=== PATIENT | female | born 1935 | race Caucasian/White ===

== ENCOUNTER 2019-04-19 16:07 | Inpatient (IN) | payer MEDICARE, OTHER, SELFPAY ==
[2019-04-19 16:38] VITALS: BP 118/66; PULSE 64; RESP 16; TEMP 36.6; O2SAT 99; BMI 18.1
[2019-04-19 17:09] LABS: Add Manual Diff / Slide Review NO; Basophils Absolute Auto 100 /uL (0-100); Basophils Percent Auto 0.4 % (0-2); Eosinophils Absolute Auto 300 /uL (0-450); Eosinophils Percent Auto 1.5 % (2-4); Hematocrit 30.9 % (36-46); Lymphocytes Absolute Auto 600 /uL (1100-4500); Lymphocytes Percent Auto 3.1 % (25-40); Mean Corpuscular HGB Conc 32.2 % (30-36); Mean Corpuscular Hemoglobin 28.5 PG (26-34); Mean Corpuscular Volume 88.5 fL (80-100); Monocytes Absolute Auto 1000 /uL (0-900); Neutrophils Absolute Auto 17300 /uL (1500-7000); Platelet Count 387 X10^3/uL (150-400); Red Blood Cell Count 3.49 X10^6/uL (4.0-5.2); Red Cell Distribution Width 14.2 % (11.6-14.8); White Blood Cell Count 19.3 X10^3/uL (4.5-11.0)
[2019-04-19 17:20] LABS: INR 1.1 (0.9-1.3)
[2019-04-19 17:23] LABS: PTT Partial Thromboplastin Tim 28 SECONDS (26.4-36.2)
[2019-04-19 17:26] LABS: Alanine Aminotransferase 149 IU/L (9-52); Albumin Globulin Ratio 0.8 (1.0-2.8); Alkaline Phosphatase 208 U/L (38-126); Aspartate Aminotransferase 131 IU/L (14-36); BUN Creatinine Ratio 21.3 (6-22); Bilirubin Total 0.4 mg/dL (0.2-1.3); Calcium 12.1 mg/dL (8.4-10.2); Carbon Dioxide 23 mmol/L (22-32); Chloride 95 mmol/L (98-107); Estimated Glomerular Filt Rate 7.9 mL/min (>60); Globulin 3.8 g/dL (1.7-4.1); Glucose 93 mg/dL (80-110); HEMOLYSIS < 15 (0-50); Lipase 587 U/L (23-300); Sodium 129 mmol/L (137-145); Total Protein 6.8 g/dL (6.3-8.2)
[2019-04-19 17:41] LABS: Blood Urea Nitrogen 111 mg/dL (7-17)
--- NOTE | 2019-04-19 17:42 | ED.RECABL ---
HPI - Recheck/Abnormal Lab/Rx General Chief Complaint: Recheck/Abnormal Lab/Rx Stated Complaint: confusion Time Seen by Provider: 04/19/19 17:42 Source: patient Mode of arrival: ambulatory Limitations: no limitations Related Data Allergies Allergy/AdvReac Type Severity Reaction Status Date / Time No Known Drug Allergies Allergy Verified 04/19/19 16:45 PFSH Social History Smoking Status: Former smoker Social History Smoking Status: Former smoker Exam Initial Vital Signs Initial Vital Signs: Vital Signs Temperature 97.8 F 04/19/19 16:38 Pulse Rate 64 04/19/19 16:38 Respiratory Rate 16 04/19/19 16:38 Blood Pressure 118/66 04/19/19 16:38 Pulse Oximetry 99 04/19/19 16:38 Course Orders Ordered: ED Orders 04/19/19 16:46 EKG-12 Lead Stat 04/19/19 16:55 Complete Blood Count AUTO DIFF Stat Comprehensive Metabolic Panel Stat Lipase Stat Partial Thromboplastin Time Stat Prothrombin Time INR Stat 04/19/19 17:41 EKG-12 Lead Stat Vital Signs Vital signs: Vital Signs - 8 hr 04/19/19 16:38 Temperature 97.8 F Pulse Rate 64 Respiratory Rate 16 Blood Pressure 118/66 Pulse Oximetry 99 MDM - Recheck/Abnormal Lab/Rx Lab Data Result diagrams: 04/19/19 16:55 04/19/19 16:55 Labs: Lab Results 04/19/19 04/19/19 04/19/19 Range/Units 16:55 16:55 16:55 WBC 19.3 H (4.5-11.0) X10^3/uL RBC 3.49 L (4.0-5.2) X10^6/uL Hgb 10.0 L (12.0-16.0) g/dL Hct 30.9 L (36-46) % MCV 88.5 (80-100) fL MCH 28.5 (26-34) PG MCHC 32.2 (30-36) % RDW 14.2 (11.6-14.8) % Plt Count 387 (150-400) X10^3/uL Neut % (Auto) 90.0 H (50-75) % Lymph % (Auto) 3.1 L (25-40) % [place] % (Auto) 5.0 (3-14) % Eos % (Auto) 1.5 L (2-4) % Baso % (Auto) 0.4 (0-2) % Neut # (Auto) 02000 H (5867-6810) /uL Lymph # (Auto) 600 L (3096-8252) /uL [place] # (Auto) 1000 H (0-900) /uL Eos # (Auto) 300 (0-450) /uL Baso # (Auto) 100 (0-100) /uL PT 13.0 H (10.1-12.7) SECONDS INR 1.1 (0.9-1.3) APTT 28 (26.4-36.2) SECONDS Sodium 129 L (137-145) mmol/L Potassium 5.0 (3.4-5.1) mmol/L Chloride 95 L (98-107) mmol/L Carbon Dioxide 23 (22-32) mmol/L BUN 111 H* (7-17) mg/dL Creatinine 5.20 H (0.52-1.04) mg/dL Estimated GFR 7.9 L (>60) mL/min BUN/Creatinine Ratio 21.3 (6-22) Glucose 93 (80-110) mg/dL Calcium 12.1 H (8.4-10.2) mg/dL Total Bilirubin 0.4 (0.2-1.3) mg/dL AST 131 H (14-36) IU/L ALT 149 H (9-52) IU/L Alkaline Phosphatase 208 H (38-126) U/L Total Protein 6.8 (6.3-8.2) g/dL Albumin 3.0 L (3.5-5.0) g/dL Globulin 3.8 (1.7-4.1) g/dL Albumin/Globulin Ratio 0.8 L (1.0-2.8) Lipase 587 H (23-300) U/L
--- NOTE | 2019-04-19 17:53 | DI.RAD.S_ITS ---
PROCEDURE: XR CHEST 1V INDICATIONS: weakness TECHNIQUE: One view of the chest was acquired. COMPARISON: None. FINDINGS: Surgical changes and devices: None. Lungs and pleura: There is trace blunting of the left costophrenic angle. Mediastinum: Mediastinal contours appear normal. Heart size is normal. Bones and chest wall: No suspicious bony lesions. Overlying soft tissues appear unremarkable. IMPRESSION: Trace left costophrenic angle blunting possibly related to scarring versus trace effusion. Dictated by: Justine Cervantes M.D. on 04/19/2019 at 18:12 Approved by: Justine Cervantes M.D. on 04/19/2019 at 18:13
--- NOTE | 2019-04-19 18:53 | ED.RECABL ---
HPI - Recheck/Abnormal Lab/Rx General Chief Complaint: Recheck/Abnormal Lab/Rx Stated Complaint: confusion Time Seen by Provider: 04/19/19 17:42 Source: patient and family (son) Limitations: altered mental status (memory issues, can answer some questions.) History of Present Illness HPI narrative: This is an 83-year-old female who comes to the emergency department for concern for renal dysfunction. Patient was living in [facility]. Her son states she was placed in a care facility because she had memory issues and a urine infection and was unable to care for herself. He states when he saw her in February she was normal and had normal memory. This was about 2 weeks ago he went to get her and bring her back when it was found that she was not safe on her own. They recently placed her in a fpc here locally about a week ago. She had found have another urine infection was placed on a 2nd round of antibiotics. He states she has not been eating or drinking much she has had a weight loss from 120 lb to about 99 over the past several weeks to months. She has a little bit of improvement in her memory she remembers that he is her son but still has a lot of gaps. He states she will occasionally have an episode of vomiting but not regularly. She has had normal bowel movements, she has been having urine output. She herself is unsure about what sort of urine output or how much she is having. She denies any shortness of breath or chest pain or pressure. She denies any pain elsewhere. Son states she has not been complaining of any. Related Data Home Medications Medication Instructions Recorded Confirmed ascorbic acid (vitamin C) [Vitamin 1,000 mg PO DAILY 04/19/19 04/19/19 C] calcium carbonate-vitamin D3 1 tab PO BID 04/19/19 04/19/19 [Calcium with Vitamin D] cholecalciferol (vitamin D3) 2,000 unit PO DAILY 04/19/19 04/19/19 [Vitamin D3] coenzyme Q10 [Co Q-10] 200 mg PO BID 04/19/19 04/19/19 flaxseed oil 1,000 mg PO WEEKLY 04/19/19 04/19/19 loperamide [Anti-Diarrheal 2 mg PO BEDTIME 04/19/19 04/19/19 (loperamide)] melatonin 3 mg PO BEDTIME PRN 04/19/19 04/19/19 metoprolol succinate 200 mg PO DAILY 04/19/19 04/19/19 potassium chloride 10 meq PO DAILY 04/19/19 04/19/19 sertraline 25 mg PO BEDTIME 04/19/19 04/19/19 simvastatin 20 mg PO DAILY 04/19/19 04/19/19 triamterene-hydrochlorothiazid 1 tab PO DAILY 04/19/19 04/19/19 vit C,L-Lt-qqgof-lutein-zeaxan 1 tab PO BID 04/19/19 04/19/19 [PreserVision AREDS-2] Allergies Allergy/AdvReac Type Severity Reaction Status Date / Time No Known Drug Allergies Allergy Verified 04/19/19 16:45 Review of Systems Review of Systems ROS Unobtainable: Unobtainable due to mental status/LOC [facility] Medical History (Updated 04/20/19 @ 04:02 by MOLLY Dyer) Dehydration (Acute) Dyslipidemia (Acute) Elevated LFTs (Acute) Hypertension (Acute) Pancreatitis (Acute) Renal failure (ARF), acute on chronic (Acute) Surgical History (Updated 04/20/19 @ 04:03 by MOLLY Dyer) History of (Acute) History of lung surgery (Acute) History of total left hip arthroplasty (Acute) Social History household members: none Smoking Status: Former smoker Social History household members: none Smoking Status: Former smoker Exam Narrative Exam Narrative: GEN: Thin elderly female female, alert and oriented to self, patient does not give the year. She did not know she was at the hospital but she did recognize the name and [place] in that she had visited here in the past, patient appears to be in no acute distress. She answers some questions but not all. HEENT: Atraumatic, pupils are equal round reactive to light, extraocular movements are intact, nares are clear. Throat is clear without any exudates, erythema, tonsillar enlargement or uvular deviation HEART: Regular rate and rhythm without murmur, clicks, rubs. LUNGS:Lungs clear to auscultation, no wheezes, rales, crackles, chest moves symmetrically, no tachypnea or accessory muscle use ABD:bowel sounds normal, soft, non-tender, no guarding, rebound, rigidity, no masses noted, no hepatosplenomegaly :No CVA tenderness MSCL: Non-tender. NEURO:CN 2-12 intact, sensation normal SKIN: No rashes, patient appears pale Initial Vital Signs Initial Vital Signs: Vital Signs Temperature 97.8 F 04/19/19 16:38 Pulse Rate 64 04/19/19 16:38 Respiratory Rate 16 04/19/19 16:38 Blood Pressure 118/66 04/19/19 16:38 Pulse Oximetry 99 04/19/19 16:38 Scores GCS Roosevelt coma scale eye opening: Spontaneous Roosevelt coma scale verbal response: Confused Jaclyn coma scale motor response: Obey commands Jaclyn coma scale total score: 14 Course Orders Ordered: Acetaminophen (Tylenol) 650 mg PO Q6HR PRN PRN Reason: As Needed for Fever/Mild Pain Al Hydrox/Mg Hydrox/Simethicone (Maalox Plus) 30 ml PO Q6HR PRN PRN Reason: Dyspepsia Bisacodyl (Dulcolax) 10 mg OH DAILY PRN PRN Reason: Constipation Calcium Carbonate (Tums) 1,000 mg PO Q4HR PRN PRN Reason: Dyspepsia Docusate Sodium (Colace) 100 mg PO BID PRN PRN Reason: Constipation Heparin Sodium (Porcine) (Heparin) 5,000 unit SUBCUT BID SACHIN Sodium Chloride (Normal Saline 0.9%) 1,000 mls @ 125 mls/hr IV CONT SACHIN Last Admin: 04/20/19 02:47 Dose: 125 mls/hr Documented by: Infusion: 04/20/19 02:47 Dose: 125 mls/hr Documented by: Admin: 04/20/19 00:28 Dose: 125 mls/hr Documented by: KILEY Melatonin (Melatonin) 3 mg PO BEDTIME PRN PRN Reason: Sleep Metoprolol Succinate (Toprol Xl) 200 mg PO DAILY SACHIN Morphine Sulfate (Morphine) 1 mg IV Q4HR PRN PRN Reason: Pain, Moderate (4-6) Naloxone HCl (Narcan) 0.2 mg IV Q2MIN PRN PRN Reason: Opiate Reversal Non-Formulary Medication (Vit C,W-Ic-Xijmn-Lutein-Zeaxan [Preservision Areds-2]) 1 tab PO BID SACHIN Ondansetron HCl (Zofran) 4 mg IV Q8HR PRN PRN Reason: Nausea And Vomiting Sertraline HCl (Zoloft) 25 mg PO BEDTIME SACHIN Discontinued Medications Sodium Chloride (Normal Saline 0.9%) 1,000 mls @ 125 mls/hr IV BOLUS ONE Stop: 04/20/19 02:45 Last Infusion: 04/19/19 22:22 Dose: 0 mls/hr Documented by: Admin: 04/19/19 18:57 Dose: 125 mls/hr Documented by: KIESHA Vital Signs Vital signs: Vital Signs - 8 hr 04/19/19 16:38 Temperature 97.8 F Pulse Rate 64 Respiratory Rate 16 Blood Pressure 118/66 Pulse Oximetry 99 MDM - Recheck/Abnormal Lab/Rx Lab Data Attestation: I reviewed the patient's lab results. Result diagrams: 04/20/19 05:10 04/19/19 16:55 Labs: Lab Results 04/19/19 04/19/19 04/19/19 Range/Units 16:55 16:55 16:55 WBC 19.3 H (4.5-11.0) X10^3/uL RBC 3.49 L (4.0-5.2) X10^6/uL Hgb 10.0 L (12.0-16.0) g/dL Hct 30.9 L (36-46) % MCV 88.5 (80-100) fL MCH 28.5 (26-34) PG MCHC 32.2 (30-36) % RDW 14.2 (11.6-14.8) % Plt Count 387 (150-400) X10^3/uL Neut % (Auto) 90.0 H (50-75) % Lymph % (Auto) 3.1 L (25-40) % [place] % (Auto) 5.0 (3-14) % Eos % (Auto) 1.5 L (2-4) % Baso % (Auto) 0.4 (0-2) % Neut # (Auto) 10125 H (6959-5940) /uL Lymph # (Auto) 600 L (6335-4112) /uL [place] # (Auto) 1000 H (0-900) /uL Eos # (Auto) 300 (0-450) /uL Baso # (Auto) 100 (0-100) /uL PT 13.0 H (10.1-12.7) SECONDS INR 1.1 (0.9-1.3) APTT 28 (26.4-36.2) SECONDS Sodium 129 L (137-145) mmol/L Potassium 5.0 (3.4-5.1) mmol/L Chloride 95 L (98-107) mmol/L Carbon Dioxide 23 (22-32) mmol/L BUN 111 H* (7-17) mg/dL Creatinine 5.20 H (0.52-1.04) mg/dL Estimated GFR 7.9 L (>60) mL/min BUN/Creatinine Ratio 21.3 (6-22) Glucose 93 (80-110) mg/dL Lactate (0.7-2.1) mmol/L Calcium 12.1 H (8.4-10.2) mg/dL Total Bilirubin 0.4 (0.2-1.3) mg/dL AST 131 H (14-36) IU/L ALT 149 H (9-52) IU/L Alkaline Phosphatase 208 H (38-126) U/L Total Creatine Kinase (30-135) U/L CK-MB (CK-2) CK-MB (CK-2) Rel Index Troponin I (0.01-0.034) ng/mL Total Protein 6.8 (6.3-8.2) g/dL Albumin 3.0 L (3.5-5.0) g/dL Globulin 3.8 (1.7-4.1) g/dL Albumin/Globulin Ratio 0.8 L (1.0-2.8) Lipase 587 H (23-300) U/L Procalcitonin (<0.5) ng/mL Urine Color Urine Appearance Urine pH (4.5-8.0) Ur Specific [place] (1.000-1.035) Urine Protein (Negative) Urine Glucose (UA) (Negative) g/dL Urine Ketones (NEGATIVE) Urine Occult Blood (Negative) Urine Nitrate (Negative) Urine Bilirubin (NEGATIVE) Urine Urobilinogen (0.2) E.U./dL Ur Leukocyte Esterase (NEGATIVE) Urine RBC (0-5/HPF) Urine WBC (0-5/HPF) Ur Squamous Epith Cells (0-5/HPF) Calcium Oxalate Crystal Urine Bacteria (None) Ur Culture Indicated? 04/19/19 04/19/19 04/19/19 Range/Units 18:28 18:28 18:28 WBC (4.5-11.0) X10^3/uL RBC (4.0-5.2) X10^6/uL Hgb (12.0-16.0) g/dL Hct (36-46) % MCV (80-100) fL MCH (26-34) PG MCHC (30-36) % RDW (11.6-14.8) % Plt Count (150-400) X10^3/uL Neut % (Auto) (50-75) % Lymph % (Auto) (25-40) % [place] % (Auto) (3-14) % Eos % (Auto) (2-4) % Baso % (Auto) (0-2) % Neut # (Auto) (9274-5696) /uL Lymph # (Auto) (1855-7236) /uL [place] # (Auto) (0-900) /uL Eos # (Auto) (0-450) /uL Baso # (Auto) (0-100) /uL PT (10.1-12.7) SECONDS INR (0.9-1.3) APTT (26.4-36.2) SECONDS Sodium (137-145) mmol/L Potassium (3.4-5.1) mmol/L Chloride (98-107) mmol/L Carbon Dioxide (22-32) mmol/L BUN (7-17) mg/dL Creatinine (0.52-1.04) mg/dL Estimated GFR (>60) mL/min BUN/Creatinine Ratio (6-22) Glucose (80-110) mg/dL Lactate 0.9 (0.7-2.1) mmol/L Calcium (8.4-10.2) mg/dL Total Bilirubin (0.2-1.3) mg/dL AST (14-36) IU/L ALT (9-52) IU/L Alkaline Phosphatase (38-126) U/L Total Creatine Kinase < 20 L (30-135) U/L CK-MB (CK-2) TNP CK-MB (CK-2) Rel Index TNP Troponin I < 0.012 (0.01-0.034) ng/mL Total Protein (6.3-8.2) g/dL Albumin (3.5-5.0) g/dL Globulin (1.7-4.1) g/dL Albumin/Globulin Ratio (1.0-2.8) Lipase (23-300) U/L Procalcitonin 0.31 (<0.5) ng/mL Urine Color Urine Appearance Urine pH (4.5-8.0) Ur Specific [place] (1.000-1.035) Urine Protein (Negative) Urine Glucose (UA) (Negative) g/dL Urine Ketones (NEGATIVE) Urine Occult Blood (Negative) Urine Nitrate (Negative) Urine Bilirubin (NEGATIVE) Urine Urobilinogen (0.2) E.U./dL Ur Leukocyte Esterase (NEGATIVE) Urine RBC (0-5/HPF) Urine WBC (0-5/HPF) Ur Squamous Epith Cells (0-5/HPF) Calcium Oxalate Crystal Urine Bacteria (None) Ur Culture Indicated? 04/19/19 Range/Units 19:32 WBC (4.5-11.0) X10^3/uL RBC (4.0-5.2) X10^6/uL Hgb (12.0-16.0) g/dL Hct (36-46) % MCV (80-100) fL MCH (26-34) PG MCHC (30-36) % RDW (11.6-14.8) % Plt Count (150-400) X10^3/uL Neut % (Auto) (50-75) % Lymph % (Auto) (25-40) % [place] % (Auto) (3-14) % Eos % (Auto) (2-4) % Baso % (Auto) (0-2) % Neut # (Auto) (2055-8018) /uL Lymph # (Auto) (7970-7296) /uL [place] # (Auto) (0-900) /uL Eos # (Auto) (0-450) /uL Baso # (Auto) (0-100) /uL PT (10.1-12.7) SECONDS INR (0.9-1.3) APTT (26.4-36.2) SECONDS Sodium (137-145) mmol/L Potassium (3.4-5.1) mmol/L Chloride (98-107) mmol/L Carbon Dioxide (22-32) mmol/L BUN (7-17) mg/dL Creatinine (0.52-1.04) mg/dL Estimated GFR (>60) mL/min BUN/Creatinine Ratio (6-22) Glucose (80-110) mg/dL Lactate (0.7-2.1) mmol/L Calcium (8.4-10.2) mg/dL Total Bilirubin (0.2-1.3) mg/dL AST (14-36) IU/L ALT (9-52) IU/L Alkaline Phosphatase (38-126) U/L Total Creatine Kinase (30-135) U/L CK-MB (CK-2) CK-MB (CK-2) Rel Index Troponin I (0.01-0.034) ng/mL Total Protein (6.3-8.2) g/dL Albumin (3.5-5.0) g/dL Globulin (1.7-4.1) g/dL Albumin/Globulin Ratio (1.0-2.8) Lipase (23-300) U/L Procalcitonin (<0.5) ng/mL Urine Color Yellow Urine Appearance Clear Urine pH 5.5 (4.5-8.0) Ur Specific [place] <=1.005 (1.000-1.035) Urine Protein Negative (Negative) Urine Glucose (UA) Negative (Negative) g/dL Urine Ketones Negative (NEGATIVE) Urine Occult Blood Negative (Negative) Urine Nitrate Negative (Negative) Urine Bilirubin Negative (NEGATIVE) Urine Urobilinogen 0.2 (0.2) E.U./dL Ur Leukocyte Esterase Negative (NEGATIVE) Urine RBC 1-5/hpf (0-5/HPF) Urine WBC 0-1/hpf (0-5/HPF) Ur Squamous Epith Cells 0-1 /hpf (0-5/HPF) Calcium Oxalate Crystal Occasional H Urine Bacteria None seen (None) Ur Culture Indicated? Cult not indicated Imaging Data Chest x-ray: My impression: [address] [address] XRay Report Signed Patient: Daija Bar CMR#: [id number] : 8Acct:[id number] Age/Sex: 83 / FDate of Service: 04/19/19 Loc: ED Accession Number: [id number] Procedure: XR chest 1V Ordering Provider: Celina Lopez MD PROCEDURE: XR CHEST 1V INDICATIONS: weakness TECHNIQUE: One view of the chest was acquired. COMPARISON: None. FINDINGS: Surgical changes and devices: None. Lungs and pleura: There is trace blunting of the left costophrenic angle. Mediastinum: Mediastinal contours appear normal. Heart size is normal. Bones and chest wall: No suspicious bony lesions. Overlying soft tissues appear unremarkable. IMPRESSION: Trace left costophrenic angle blunting possibly related to scarring versus trace effusion. Dictated by: Justine Cervantes M.D. on 04/19/2019 at 18:12 Approved by: Justine Cervantes M.D. on 04/19/2019 at 18:13 Radiologist's impression: ECG Data Attestation: I personally reviewed and interpreted this ECG as follows: Interpretation: Sinus bradycardia rate of 59 OH 188 QRS of [address] changes appreciated. MDM Narrative Medical decision making narrative: Patient renal function may be pre renal causing her dysfunction although it sounds like she has stage III kidney function according to her son when he discussed with primary care doctor who sent them to the hospital today. Patient son and I were all in the room during discussion and she would not wish to be a dialysis candidate. Plan for some gentle hydration, Fernando catheter for urinalysis for infection as well as urine output and how much she is putting out regularly. Would like to get a CT her abdomen pelvis as she has an elevated white count and elevation of her LFTs which may not be related to her renal dysfunction and recent UTIs. Blood cultures were obtained. plan for admission to the hospitalist, spoke with Willie Bro [employer]INE OPERATOR who accepts. We did discuss that patient and family are clear they do not want dialysis in the future. Patient has had good urine output in the ER. Imaging does not show an acute souce for her elevated lft's, lipase. Discharge Plan Departure Patient Disposition: Admitted As Inpatient Clinical Impression: Renal failure (ARF), acute on chronic, Dehydration, Pancreatitis, Elevated LFTs Discharge Date/Time: 04/19/19 22:46 Admit Date/Time: 04/19/19 21:24 Admit Provider: Braden Bro
[2019-04-19 18:54] LABS: Lactate (Lactic Acid) 0.9 mmol/L (0.7-2.1)
[2019-04-19] MEDS: SODIUM CHLORIDE 0.9% 1,000 ML 125 ML IV (18:57)
--- NOTE | 2019-04-19 19:09 | DI.CT.S_ITS ---
PROCEDURE: CT ABDOMEN PELVIS WO CON INDICATIONS: renal failure, elevated lfts, lipase, elevated wbc, hx uti TECHNIQUE: Noncontrast 5 mm thick sections acquired from the diaphragms to the symphysis. 5 mm coronal and sagittal reformats were then performed. For radiation dose reduction, the following was used: automated exposure control, adjustment of mA and/or kV according to patient size. COMPARISON: None. FINDINGS: Image quality: Motion is present within multiple images limiting areas of evaluation. Pelvis evaluation is limited secondary to metallic artifact from left hip arthroplasty. ABDOMEN: Lung bases: Partially visualized 4 mm nodular opacity in the right base. Solid organs: Liver is normal in size. Gallbladder is unremarkable. Pancreas is normal in contours. Spleen is normal in size. No adrenal nodules. Kidneys are normal in size, without hydronephrosis. There is a punctate ossification are present within the kidneys bilaterally suspected to represent vascular calcifications. Left renal cyst is present. Peritoneum and bowel: Unenhanced bowel loops demonstrate normal wall thickness and caliber. No free fluid or air. Appendix is unremarkable Nodes and vessels: No retroperitoneal or mesenteric adenopathy by size criteria. Aorta and inferior vena cava are normal in caliber. Miscellaneous: No ventral hernias. PELVIS: Genitourinary: Bladder is collapsed with a Fernando catheter, limited evaluation. Miscellaneous: No inguinal hernias or adenopathy. Bones: No suspicious bony lesions. No vertebral body compression fractures. IMPRESSION: 1. Bladder is collapsed with a Fernando catheter limits evaluation. 2. Appendix is unremarkable. 3. Partially visualized 4 mm right basilar nodule. No priors are available for comparison. Recommend interval followup as well there is evaluation. Fleischner Society criteria for SOLID lung nodule followup. Nodule size (mm)Low-risk patientHigh-risk patient<6 (single or multiple)No routine followup.Optional CT at 12 months. 6-8 (single or multiple)CT at 6-12 months, then optional CT at 18-24 mo.CT at 6-12 months, then CT at 18-24 months. >8 (single)CT, PET-CT, or biopsy at 3 months. Same as for low-risk pts. >8 (multiple)CT at 3-6 months, then optional CT at 18-24 mo.CT at 3-6 months, then CT at 18-24 months. Recommendations do not apply to lung cancer screening, patients with immunosuppression, or patients with known primary cancer. Dictated by: Justine Cervantes M.D. on 04/19/2019 at 20:23 Approved by: Justine Cervantes M.D. on 04/19/2019 at 20:28
[2019-04-19 19:11] LABS: Troponin I < 0.012 ng/mL (0.01-0.034)
[2019-04-19 19:14] LABS: Creatine Kinase < 20 U/L (30-135); Procalcitonin 0.31 ng/mL (<0.5)
[2019-04-19 19:30] VITALS: BP 128/58; PULSE 58; RESP 14; O2SAT 100
[2019-04-19 19:46] LABS: Bacteria Urine None Seen
[2019-04-19 19:50] LABS: Appearance Urine UA CLEAR; Bilirubin Urine UA NEGATIVE (NEGATIVE); Color Urine UA YELLOW; Glucose Urine UA NEGATIVE (Negative); Ketones Urine UA NEGATIVE (NEGATIVE); Leukocyte Esterase Urine UA NEGATIVE (NEGATIVE); Nitrite Urine UA NEGATIVE (Negative); Occult Blood Urine UA NEGATIVE (Negative); Protein Urine UA NEGATIVE (Negative); Specific Gravity Urine UA <=1.005 (1.000-1.035); Urobilinogen Urine UA 0.2 E.U./dL (0.2); pH Urine UA 5.5 (4.5-8.0)
[2019-04-19 19:59] LABS: Calcium Oxalate Crystals Urine Occasional; Culture Indicated Urine Cult Not Indicated; RBC Urine 1-5/HPF (0-5/HPF); Squamous Epithelial Cell Urine 0-1 /HPF (0-5/HPF); WBC Urine 0-1/HPF (0-5/HPF)
[2019-04-19 20:30] VITALS: BP 136/50; PULSE 55; RESP 12; O2SAT 100
[2019-04-19 22:21] VITALS: BP 132/55; PULSE 60; RESP 18; O2SAT 100
[2019-04-19 22:40] VITALS: BP 138/61; PULSE 59; RESP 14; TEMP 36.1; O2SAT 90
[2019-04-19 22:42] VITALS: BMI 21.7
--- NOTE | 2019-04-19 23:23 | PC.ADMIT ---
Pt admitted to acute care from ed, slider board to bed. Denies pain. Son at bedside. Pt/son oriented to room/call light, pt will need reinforcement. Bed alarm on/history of falls. Isabella Coates called for most recent med list. NOC shift nurse aware to check main station for it. [address] [facility] Admission Note: The patient,Daija Bar,83 y/o, was given written information regarding hospital policies, unit procedures and contact persons. Patient's smoking status: Former smoker. Vital Signs - 8 hr 04/19/19 16:38 04/19/19 19:30 04/19/19 20:30 Temperature 97.8 F Pulse Rate 64 58 L 55 L Respiratory Rate 16 14 12 Blood Pressure 118/66 Blood Pressure [Left Arm] 128/58 L 136/50 L Pulse Oximetry 99 100 100 04/19/19 22:21 04/19/19 22:40 Temperature 97.0 F L Pulse Rate 60 59 L Respiratory Rate 18 14 Blood Pressure 138/61 Blood Pressure [Left Arm] 132/55 L Pulse Oximetry 100 90 L
[2019-04-20] VITALS (7 sets, daily range): BP systolic 112–148; BP diastolic 58–68; PULSE 60–66; RESP 15–18; TEMP 36.4–37.1; O2SAT 96–100
[2019-04-20] MEDS: SODIUM CHLORIDE 0.9% 1,000 ML 125 ML IV ×3 (00:28→10:09)
[2019-04-20 01:56] LABS: Adenovirus Not Detected (Not Detect); Bordetella pertussis Not Detected (Not Detect); Chlamydophila pneumoniae Not Detected (Not Detect); Coronavirus 229E Not Detected (Not Detect); Coronavirus HKU1 Not Detected (Not Detect); Coronavirus NL 63 Not Detected (Not Detect); Coronavirus OC43 Not Detected (Not Detect); Human Metapneumovirus Not Detected (Not Detect); Human Rhinovirus/Enterovirus Not Detected (Not Detect); Influenza A Not Detected (Not Detect); Influenza B Not Detected (Not Detect); Mycoplasma pneumoniae Not Detected (Not Detect); Parainfluenza Virus 1 Not Detected (Not Detect); Parainfluenza Virus 2 Not Detected (Not Detect); Parainfluenza Virus 3 Not Detected (Not Detect); Parainfluenza Virus 4 Not Detected (Not Detect); Respiratory Syncytial Virus Not Detected (Not Detect)
--- NOTE | 2019-04-20 03:44 | PM.HP.1 ---
History of Present Illness History of Present Illness Date Patient Seen: 04/19/19 Time Patient Seen: 21:55 Chief complaint: confusion Narrative: Ms Daija Bar is an 83-year-old female with a history significant for impaired memory, hypertension and chronic renal failure stage III who presents to the ER today sent in by her primary care provider for acute on chronic renal failure. The patient is seen with her son present who provides essentially all the medical background. Patient is a poor historian and is unable to provide meaningful information. The patient had been living in [place] independently in a [facility] when the son received a call that the patient was wandering the halls and altered. At the end of February or early March. The patient was taken to the hospital by her son who traveled [place] and evaluated in the ER found to have UTI and after which the patient was placed in a assisted living facility in [place]. Apparently at that time per the son the patient had chronic renal failure stage 3. While at that facility the patient essentially stopped eating and drinking so her son brought his mother to [place] 2 weeks ago and she was placed at [facility] would be under hospice last Monday. The patient and her son do not want dialysis for markedly elevated BUN and creatinine. The only complaint elicited from the patient as she has a headache. Upon arrival in the ER the patient has a temperature of 97.8?, heart rate of 64, blood pressure 118/66, respirations 16 and saturating 99% on room air. On abdominal CT the patient has normal liver and gallbladder, pancreas is normal and a 4 mm basilar nodule is noted. On chest x-ray no mention, there is a trace blunting of less cough stool phrenic angle thought to be scarring versus effusion. On laboratory analysis the patient has elevated white count at 19.3, hemoglobin of 19, hematocrit of 30.9, platelets of 387. Hyponatremic at 129, potassium is 5.0 with a BUN of 111 and creatinine of 5.2. She has a total bilirubin of 0.4, AST of 131, ALT of 149 and alkaline phosphatase of 208. She has elevated lipase at 587. On coags patient she S of PT is 13.1 with a INR of 1 of 28. Troponin is negative. Discussed care plan with the patient's son who requests no aggressive interventions and refuses dialysis. As such the patient is admitted here with intention to attempt rehydration with normal saline. It was noted the patient may not benefit from the intervention and as such may need to consider comfort care measures. Patient History Medical History (Updated 04/20/19 @ 04:02 by MOLLY Dyer) Dehydration (Acute) Dyslipidemia (Acute) Elevated LFTs (Acute) Hypertension (Acute) Pancreatitis (Acute) Renal failure (ARF), acute on chronic (Acute) Surgical History (Updated 04/20/19 @ 04:03 by MOLLY Dyer) History of (Acute) History of lung surgery (Acute) History of total left hip arthroplasty (Acute) Social History household members: none Smoking Status: Former smoker Family & Social History Social History: household members none Prior Living Arrangements Skilled Nurse Facility Safety & Behavioral: Feels Safe in Current Yes Environment Been Physically Hurt or No Threatened By a Person Suicidal Ideation Description None Tobacco & Substance use: Smoking Status Former smoker alcohol intake frequency holiday/special occasion Substance Use Type does not use Comment: The patient was admitted 1 stay to [facility] and per the son is being admitted to hospice. The patient's father from heart attack in his 70s, his mother from cardiac disease in her 50s. She has 5 brothers and 1 sister 1 of whom has multiple sclerosis and 1 with complications from alcohol abuse. Smoking: The patient quit over 40 years ago Alcohol: Approximately 1 glass 1 per month Substance use: Patient denies recreation pharmaceuticals herbal or cannabis products. Advanced directives patient has an existing living well and has stated her desire to be DO NOT RESUSCITATE. Her son is her surrogate decision maker. Meds Home Medications and Allergies Home Medications Medication Instructions Recorded Confirmed Type ascorbic acid (vitamin C) [Vitamin 1,000 mg PO DAILY 04/19/19 04/19/19 History C] calcium carbonate-vitamin D3 1 tab PO BID 04/19/19 04/19/19 History [Calcium with Vitamin D] cholecalciferol (vitamin D3) 2,000 unit PO DAILY 04/19/19 04/19/19 History [Vitamin D3] coenzyme Q10 [Co Q-10] 200 mg PO BID 04/19/19 04/19/19 History flaxseed oil 1,000 mg PO WEEKLY 04/19/19 04/19/19 History loperamide [Anti-Diarrheal 2 mg PO BEDTIME 04/19/19 04/19/19 History (loperamide)] melatonin 3 mg PO BEDTIME PRN 04/19/19 04/19/19 History metoprolol succinate 200 mg PO DAILY 04/19/19 04/19/19 History potassium chloride 10 meq PO DAILY 04/19/19 04/19/19 History sertraline 25 mg PO BEDTIME 04/19/19 04/19/19 History simvastatin 20 mg PO DAILY 04/19/19 04/19/19 History triamterene-hydrochlorothiazid 1 tab PO DAILY 04/19/19 04/19/19 History vit C,Q-Nv-vpdba-lutein-zeaxan 1 tab PO BID 04/19/19 04/19/19 History [PreserVision AREDS-2] Allergies Allergy/AdvReac Type Severity Reaction Status Date / Time No Known Drug Allergies Allergy Verified 04/19/19 16:45 Review of Systems Review of Systems ROS Unobtainable: unobtainable due to mental condition (Patient is unable to contribute to review of systems) Exam Vital Signs (past 8 hours): - 04/19/19 20:30 04/19/19 22:21 04/19/19 22:40 Temperature 97.0 F L Pulse Rate 55 L 60 59 L Respiratory Rate 12 18 14 Blood Pressure 138/61 Blood Pressure [Left Arm] 136/50 L 132/55 L Pulse Oximetry 100 100 90 L 04/20/19 03:01 Temperature 97.5 F L Pulse Rate 60 Respiratory Rate 18 Blood Pressure 140/59 L Blood Pressure [Left Arm] Pulse Oximetry 99 Oxygen Delivery Method Room Air Narrative Exam Narrative: GENERAL APPEARANCE: well developed, adequately nourished, BMI of 21.7, appears uncomfortable but in no acute distress. HEAD: Normocephalic, atraumatic, no scalp lesions. EYES: pupils equal, round, reactive to light and accommodation, sclera non-icteric, extraocular movement intact without nystagmus. EARS: normal external structures, no ear pain NOSE: sinuses non tender to percussion, no rhinorrhea ORAL CAVITY: mucosa moist without lesions or exudate, palate normal, tongue in midline. THROAT: normal, no erythema, no exudate, posterior pharynx normal. NECK/THYROID: neck supple, no jugular venous distention, no carotid bruit, no thyromegaly, trachea midline. LYMPH NODES: no cervical or supraclavicular lymphadenopathy. SKIN: warm and dry, no suspicious lesions, no rashes, good turgor. HEART: regular rate and rhythm, S1-S2 without murmur, no rubs or gallops, brisk capillary refill, no edema LUNGS: clear to auscultation bilaterally, no coarseness crackles or wheezing, no cough present CHEST: Symmetrical movement, no accessory muscle use, no pain to AP and lateral compression. ABDOMEN: Soft, tympanic to percussion, tenderness to palpation bilateral upper quadrants, no guarding or peritoneal signs, no organomegaly, active bowel tones. BACK: Nontender, no pain with straight leg raise. EXTREMITIES: moves all extremities, strength is 4/5 and symmetrical, no deformities or joint effusions. NEUROLOGIC: AAO to self only, cranial nerves II-XII grossly intact , sensory exam intact to light touch, hearing grossly normal to speech. PSYCH: alert, anxious, poor eye contact, minimal verbalization in very diminutive voice Objective Labs Result Diagrams: 04/19/19 16:55 04/19/19 16:55 Labs: Laboratory Results - last 24 hr 04/19/19 04/19/19 04/19/19 16:55 16:55 16:55 WBC 19.3 H RBC 3.49 L Hgb 10.0 L Hct 30.9 L MCV 88.5 MCH 28.5 MCHC 32.2 RDW 14.2 Plt Count 387 Neut % (Auto) 90.0 H Lymph % (Auto) 3.1 L [place] % (Auto) 5.0 Eos % (Auto) 1.5 L Baso % (Auto) 0.4 Neut # (Auto) 16850 H Lymph # (Auto) 600 L [place] # (Auto) 1000 H Eos # (Auto) 300 Baso # (Auto) 100 PT 13.0 H INR 1.1 APTT 28 Sodium 129 L Potassium 5.0 Chloride 95 L Carbon Dioxide 23 BUN 111 H* Creatinine 5.20 H Estimated GFR 7.9 L BUN/Creatinine Ratio 21.3 Glucose 93 Lactate Calcium 12.1 H Total Bilirubin 0.4 AST 131 H ALT 149 H Alkaline Phosphatase 208 H Total Creatine Kinase CK-MB (CK-2) CK-MB (CK-2) Rel Index Troponin I Total Protein 6.8 Albumin 3.0 L Globulin 3.8 Albumin/Globulin Ratio 0.8 L Lipase 587 H Procalcitonin Urine Color Urine Appearance Urine pH Ur Specific [place] Urine Protein Urine Glucose (UA) Urine Ketones Urine Occult Blood Urine Nitrate Urine Bilirubin Urine Urobilinogen Ur Leukocyte Esterase Urine RBC Urine WBC Ur Squamous Epith Cells Calcium Oxalate Crystal Urine Bacteria Ur Culture Indicated? Chlamy pneumoniae PCR Adenovirus (PCR) B.parapertussis DNA PCR Coronavirus OC43 (PCR) Coronavirus HKU1 (PCR) Coronavirus 229E (PCR) Coronavirus NL63 (PCR) Human Metapneumovir PCR Influenza Type A (PCR) Influenza Type B (PCR) M. pneumoniae (PCR) Parainfluenza 1 (PCR) Parainfluenza 2 (PCR) Parainfluenza 3 (PCR) Parainfluenza 4 (PCR) RSV (PCR) Entero/Rhino (PCR) 04/19/19 04/19/19 04/19/19 18:28 18:28 18:28 WBC RBC Hgb Hct MCV MCH MCHC RDW Plt Count Neut % (Auto) Lymph % (Auto) [place] % (Auto) Eos % (Auto) Baso % (Auto) Neut # (Auto) Lymph # (Auto) [place] # (Auto) Eos # (Auto) Baso # (Auto) PT INR APTT Sodium Potassium Chloride Carbon Dioxide BUN Creatinine Estimated GFR BUN/Creatinine Ratio Glucose Lactate 0.9 Calcium Total Bilirubin AST ALT Alkaline Phosphatase Total Creatine Kinase < 20 L CK-MB (CK-2) TNP CK-MB (CK-2) Rel Index TNP Troponin I < 0.012 Total Protein Albumin Globulin Albumin/Globulin Ratio Lipase Procalcitonin 0.31 Urine Color Urine Appearance Urine pH Ur Specific [place] Urine Protein Urine Glucose (UA) Urine Ketones Urine Occult Blood Urine Nitrate Urine Bilirubin Urine Urobilinogen Ur Leukocyte Esterase Urine RBC Urine WBC Ur Squamous Epith Cells Calcium Oxalate Crystal Urine Bacteria Ur Culture Indicated? Chlamy pneumoniae PCR Adenovirus (PCR) B.parapertussis DNA PCR Coronavirus OC43 (PCR) Coronavirus HKU1 (PCR) Coronavirus 229E (PCR) Coronavirus NL63 (PCR) Human Metapneumovir PCR Influenza Type A (PCR) Influenza Type B (PCR) M. pneumoniae (PCR) Parainfluenza 1 (PCR) Parainfluenza 2 (PCR) Parainfluenza 3 (PCR) Parainfluenza 4 (PCR) RSV (PCR) Entero/Rhino (PCR) 04/19/19 04/20/19 19:32 00:30 WBC RBC Hgb Hct MCV MCH MCHC RDW Plt Count Neut % (Auto) Lymph % (Auto) [place] % (Auto) Eos % (Auto) Baso % (Auto) Neut # (Auto) Lymph # (Auto) [place] # (Auto) Eos # (Auto) Baso # (Auto) PT INR APTT Sodium Potassium Chloride Carbon Dioxide BUN Creatinine Estimated GFR BUN/Creatinine Ratio Glucose Lactate Calcium Total Bilirubin AST ALT Alkaline Phosphatase Total Creatine Kinase CK-MB (CK-2) CK-MB (CK-2) Rel Index Troponin I Total Protein Albumin Globulin Albumin/Globulin Ratio Lipase Procalcitonin Urine Color Yellow Urine Appearance Clear Urine pH 5.5 Ur Specific [place] <=1.005 Urine Protein Negative Urine Glucose (UA) Negative Urine Ketones Negative Urine Occult Blood Negative Urine Nitrate Negative Urine Bilirubin Negative Urine Urobilinogen 0.2 Ur Leukocyte Esterase Negative Urine RBC 1-5/hpf Urine WBC 0-1/hpf Ur Squamous Epith Cells 0-1 /hpf Calcium Oxalate Crystal Occasional H Urine Bacteria None seen Ur Culture Indicated? Cult not indicated Chlamy pneumoniae PCR Not detected Adenovirus (PCR) Not detected B.parapertussis DNA PCR Not detected Coronavirus OC43 (PCR) Not detected Coronavirus HKU1 (PCR) Not detected Coronavirus 229E (PCR) Not detected Coronavirus NL63 (PCR) Not detected Human Metapneumovir PCR Not detected Influenza Type A (PCR) Not detected Influenza Type B (PCR) Not detected M. pneumoniae (PCR) Not detected Parainfluenza 1 (PCR) Not detected Parainfluenza 2 (PCR) Not detected Parainfluenza 3 (PCR) Not detected Parainfluenza 4 (PCR) Not detected RSV (PCR) Not detected Entero/Rhino (PCR) Not detected Assessment & Plan Assessment & Plan narrative: The patient is admitted to the hospital for acute on chronic renal failure and refusal of dialysis. The patient has underlying advanced dementia with poor nutrition and is entering into hospice. 1. Acute on chronic renal failure, present on admission, active -on admission patient had a BUN of 111 and creatinine of 5.2. Potassium is 5.0. Creatinine clearance is calculated at 6 0.97, stage 5 renal failure. -possibly pre renal, normal saline at 125 cc/hour. Will monitor renal function. -will avoid renal toxic agents, hold patient's home potassium 2. Pancreatitis, acute present on admission, active. -elevated lipase at 587 with upper abdominal discomfort on palpation. No evidence of pancreatitis noted on abdominal CT. -IV normal saline at 125 cc/hour. Morphine 1 mg every 4 hours as needed for pain -patient is NPO and will advance diet to clear liquids in the morning. 3. Leukocytosis, acute, present on admission, active. -patient is afebrile, WBC are 19.3, unidentified source, abdominal CT is negative, UA is negative as well as chest x-ray. -will check procalcitonin and obtain respiratory PCR panel. 4. Impaired memory and cognition, acute, present on admission, active. -the patient's son that when he visited his mother early February she was in normal baseline level of functioning independent in ADLs and ambulated with a cane. -the patient is subsequently had a precipitous decline in cognitive function 1st initially thought to be related to urinary tract infection. -patient with continuing a decline is only oriented to self only and minimally interactive. -will continue patient's home regimen of sertraline 25 mg at bedtime and melatonin 3 mg at bedtime 5. Failure to thrive, acute, present on admission, active. -patient's son describes continued weight loss poor appetite using boost and Ensure with poor intake. -patient with progressive weakness and debility secondary to poor nutrition. -patient's being entered into hospice. 6. Hypertension, chronic, stable -will continue the patient's metoprolol succinate 200 mg daily -will hold triamterene hydrochlorothiazide related to renal function and monitor blood pressure. 7. Hyperlipidemia, chronic, presumed stable -will continue patient's home regimen of simvastatin 20 mg daily. The patient is admitted to the hospital for treatment for acute on chronic renal failure and associated risks of complications. Patient is admitted observation with expected length of stay to be less than 2 midnights. Scores GCS [place] coma scale eye opening: Spontaneous [place] coma scale verbal response: Confused Jaclyn coma scale motor response: Obey commands [place] coma scale total score: 14
[2019-04-20 05:39] LABS: Add Manual Diff / Slide Review NO; BUN Creatinine Ratio 23.2 (6-22); Basophils Absolute Auto 100 /uL (0-100); Basophils Percent Auto 0.6 % (0-2); Calcium 10.5 mg/dL (8.4-10.2); Carbon Dioxide 21 mmol/L (22-32); Chloride 99 mmol/L (98-107); Eosinophils Absolute Auto 400 /uL (0-450); Eosinophils Percent Auto 2.1 % (2-4); Estimated Glomerular Filt Rate 8.9 mL/min (>60); Glucose 71 mg/dL (80-110); HEMOLYSIS < 15 (0-50); Hemoglobin 8.7 g/dL (12.0-16.0); Lymphocytes Absolute Auto 600 /uL (1100-4500); Lymphocytes Percent Auto 3.4 % (25-40); Mean Corpuscular HGB Conc 32.1 % (30-36); Mean Corpuscular Hemoglobin 28.8 PG (26-34); Mean Corpuscular Volume 89.5 fL (80-100); Monocytes Absolute Auto 800 /uL (0-900); Monocytes Percent Auto 4.5 % (3-14); Neutrophils Absolute Auto 16400 /uL (1500-7000); Neutrophils Percent Auto 89.4 % (50-75); Platelet Count 319 X10^3/uL (150-400); Potassium 4.7 mmol/L (3.4-5.1); Red Blood Cell Count 3.01 X10^6/uL (4.0-5.2); Red Cell Distribution Width 14.3 % (11.6-14.8); Sodium 130 mmol/L (137-145); White Blood Cell Count 18.3 X10^3/uL (4.5-11.0)
[2019-04-20 06:14] LABS: Blood Urea Nitrogen 109 mg/dL (7-17)
--- NOTE | 2019-04-20 06:17 | PC.NURSE ---
Notified Dieudonne COMER of critical lab BUN 109. Critical lab read back. No orders received
[2019-04-20 06:37] LABS: Lipase 513 U/L (23-300)
--- NOTE | 2019-04-20 06:39 | PC.NURSE ---
Pt BG 71, pt asymptomatic. Gave patient apple juice to drink. Will recheck levels
[2019-04-20 06:46] LABS: Procalcitonin 0.27 ng/mL (<0.5)
[2019-04-20] MEDS: ONDANSETRON 4 MG/2 ML INJ IV (09:03)
[2019-04-20] MEDS: HEPARIN 5,000 UNIT/ML VIAL 5000 UNIT SUBCUT ×2 (09:04→20:47)
[2019-04-20] MEDS: METOPROLOL ER 50 MG TABLET 200 MG PO (09:05)
--- NOTE | 2019-04-20 09:55 | PC.NURSE ---
Addendum entered by Chelo Elena R.N. 04/20/19 14:15: ABX - info to Dr. Wells, pt had been on doxycyline 100mg po bid for 7 days, started 04/12/19 per call to [facility] pharmacy in [place] [phone]. Original Note: AM NOTE - pt easily awakens, oriented self, cannot name hospital or city, denies pain, when son arrived, assisted upright for sips clear liq, initially denied nausea, with son's prompting, did admit to underlying nausea and given 4mg iv zofran, resting r hand tremor, hr irreg 72, irene w/clear, pale yellow urine, per son incr weakness.
--- NOTE | 2019-04-20 10:03 | P.PN_ITS ---
Subjective Subjective Date Patient Seen: 04/20/19 Interval history: Daija Bar is an 83-year-old female with a past medical history significant for hypertension, chronic kidney disease stage III, and probable advanced dementia who presented to the ED from her PCP's office for acute kidney injury on chronic kidney disease. The patient is resting in bed comfortably. She is quite weak and debilitated with generalized weakness however L>R. She speaks quietly and mumbles therefore, she is somewhat difficult to understand. She denies pain. Discussed goals of care with her son who would like to continue to give her IV fluid to reverse her kidney injury if possible. He is amenable to temporary dialysis but would not want her to be on long-term dialysis. She has significant short and long-term memory impairment likely manufacturer representative of advanced dementia. The patient was living in [place] up until several days ago and her baseline health status and mentation is questionable. She endorses fatigue and chronic chest pain. She denies headache, shortness of breath, abdominal pain, nausea, vomiting, fever, chills, dysuria, diarrhea or constipation. She has a poor a ppetite and her son will try to force her to eat and drink. She is voiding without difficulty. Plan for PT/OT evaluation and treatment. Exam Vital Signs (past 8 hours): - 04/20/19 15:00 04/20/19 16:12 Temperature 97.7 F Pulse Rate 63 Respiratory Rate 16 Pulse Oximetry 96 96 Oxygen Delivery Method Room Air Oxygen Flow Rate 0 Narrative Exam Narrative: General: Elderly thin and frail female lying in bed and in no acute distress, probable advanced dementia with short and long-term memory recall deficit but otherwise appropriately interactive. HEENT: Normocephalic, atraumatic. External ears without defect. Pupils equal, round, and reactive to light Anicteric sclerae, moist conjunctivae, and no lid lag. Neck: Poor skin turgor with full range of motion. No jugular venous distension. No lymphadenopathy or thyromegaly. Temporal wasting. Cardiovascular: Regular rate and rhythm without murmurs, rubs, or gallops appreciated. Pulmonary: Clear to auscultation bilaterally without crackles, wheezes, or rhonchi. Normal respiratory effort without use of accessory muscles. Abdomen: Soft, bowel sounds present, nontender, nondistended. No hepatosplenomegaly or masses appreciated. Extremities: No clubbing, cyanosis, or edema. Generalized weakness L>R. Diffuse muscle wasting. Skin: Normal temperature, turgor, and texture; no rash, ulcers, or subcutaneous nodules appreciated. Neurological: Cranial nerves grossly intact. Psychiatric: Depressed mood and flat affect. Alert and oriented to person only. Probable advanced dementia with short and long-term memory impairment. Objective Labs Result Diagrams: 04/20/19 05:10 04/20/19 05:10 Labs: Laboratory Results - last 24 hr 04/19/19 04/19/19 04/19/19 18:28 18:28 18:28 WBC RBC Hgb Hct MCV MCH MCHC RDW Plt Count Neut % (Auto) Lymph % (Auto) Glascock % (Auto) Eos % (Auto) Baso % (Auto) Neut # (Auto) Lymph # (Auto) Glascock # (Auto) Eos # (Auto) Baso # (Auto) Sodium Potassium Chloride Carbon Dioxide BUN Creatinine Estimated GFR BUN/Creatinine Ratio Glucose Lactate 0.9 Calcium Total Creatine Kinase < 20 L CK-MB (CK-2) TNP CK-MB (CK-2) Rel Index TNP Troponin I < 0.012 Lipase Procalcitonin 0.31 Urine Color Urine Appearance Urine pH Ur Specific [place] Urine Protein Urine Glucose (UA) Urine Ketones Urine Occult Blood Urine Nitrate Urine Bilirubin Urine Urobilinogen Ur Leukocyte Esterase Urine RBC Urine WBC Ur Squamous Epith Cells Calcium Oxalate Crystal Urine Bacteria Ur Culture Indicated? Chlamy pneumoniae PCR Adenovirus (PCR) B.parapertussis DNA PCR Coronavirus OC43 (PCR) Coronavirus HKU1 (PCR) Coronavirus 229E (PCR) Coronavirus NL63 (PCR) Human Metapneumovir PCR Influenza Type A (PCR) Influenza Type B (PCR) M. pneumoniae (PCR) Parainfluenza 1 (PCR) Parainfluenza 2 (PCR) Parainfluenza 3 (PCR) Parainfluenza 4 (PCR) RSV (PCR) Entero/Rhino (PCR) 04/19/19 04/20/19 04/20/19 19:32 00:30 05:10 WBC 18.3 H RBC 3.01 L Hgb 8.7 L Hct 27.0 L MCV 89.5 MCH 28.8 MCHC 32.1 RDW 14.3 Plt Count 319 Neut % (Auto) 89.4 H Lymph % (Auto) 3.4 L Glascock % (Auto) 4.5 Eos % (Auto) 2.1 Baso % (Auto) 0.6 Neut # (Auto) 67102 H Lymph # (Auto) 600 L Glascock # (Auto) 800 Eos # (Auto) 400 Baso # (Auto) 100 Sodium Potassium Chloride Carbon Dioxide BUN Creatinine Estimated GFR BUN/Creatinine Ratio Glucose Lactate Calcium Total Creatine Kinase CK-MB (CK-2) CK-MB (CK-2) Rel Index Troponin I Lipase Procalcitonin Urine Color Yellow Urine Appearance Clear Urine pH 5.5 Ur Specific [place] <=1.005 Urine Protein Negative Urine Glucose (UA) Negative Urine Ketones Negative Urine Occult Blood Negative Urine Nitrate Negative Urine Bilirubin Negative Urine Urobilinogen 0.2 Ur Leukocyte Esterase Negative Urine RBC 1-5/hpf Urine WBC 0-1/hpf Ur Squamous Epith Cells 0-1 /hpf Calcium Oxalate Crystal Occasional H Urine Bacteria None seen Ur Culture Indicated? Cult not indicated Chlamy pneumoniae PCR Not detected Adenovirus (PCR) Not detected B.parapertussis DNA PCR Not detected Coronavirus OC43 (PCR) Not detected Coronavirus HKU1 (PCR) Not detected Coronavirus 229E (PCR) Not detected Coronavirus NL63 (PCR) Not detected Human Metapneumovir PCR Not detected Influenza Type A (PCR) Not detected Influenza Type B (PCR) Not detected M. pneumoniae (PCR) Not detected Parainfluenza 1 (PCR) Not detected Parainfluenza 2 (PCR) Not detected Parainfluenza 3 (PCR) Not detected Parainfluenza 4 (PCR) Not detected RSV (PCR) Not detected Entero/Rhino (PCR) Not detected 04/20/19 04/20/19 04/20/19 05:10 05:10 05:10 WBC RBC Hgb Hct MCV MCH MCHC RDW Plt Count Neut % (Auto) Lymph % (Auto) Glascock % (Auto) Eos % (Auto) Baso % (Auto) Neut # (Auto) Lymph # (Auto) [place] # (Auto) Eos # (Auto) Baso # (Auto) Sodium 130 L Potassium 4.7 Chloride 99 Carbon Dioxide 21 L BUN 109 H* Creatinine 4.70 H Estimated GFR 8.9 L BUN/Creatinine Ratio 23.2 H Glucose 71 L Lactate Calcium 10.5 H Total Creatine Kinase CK-MB (CK-2) CK-MB (CK-2) Rel Index Troponin I Lipase 513 H Procalcitonin 0.27 Urine Color Urine Appearance Urine pH Ur Specific [place] Urine Protein Urine Glucose (UA) Urine Ketones Urine Occult Blood Urine Nitrate Urine Bilirubin Urine Urobilinogen Ur Leukocyte Esterase Urine RBC Urine WBC Ur Squamous Epith Cells Calcium Oxalate Crystal Urine Bacteria Ur Culture Indicated? Chlamy pneumoniae PCR Adenovirus (PCR) B.parapertussis DNA PCR Coronavirus OC43 (PCR) Coronavirus HKU1 (PCR) Coronavirus 229E (PCR) Coronavirus NL63 (PCR) Human Metapneumovir PCR Influenza Type A (PCR) Influenza Type B (PCR) M. pneumoniae (PCR) Parainfluenza 1 (PCR) Parainfluenza 2 (PCR) Parainfluenza 3 (PCR) Parainfluenza 4 (PCR) RSV (PCR) Entero/Rhino (PCR) Assessment & Plan Assessment & Plan narrative: Daija Bar is an 83-year-old female with a past medical history significant for hypertension, chronic kidney disease stage III, and probable advanced dementia who presented to the ED from her PCP's office for acute kidney injury on chronic kidney disease. 1. Acute kidney injury on chronic kidney disease stage III, present on admission. Active. -Likely secondary to previous nephrotoxic antibiotic therapy in [place] and prerenal azotemia from dehydration. -Initial creatinine 5.2. Marginal improvement with IV fluids creatinine now 4.7. Potassium is 5.0. Creatinine clearance is calculated 3 mL/min indicative of stage 5 renal failure. -Discussion with patient's son and DPOA Cliff Bar revealed they would be amenable to temporary dialysis but nothing long-term. -Continue normal saline but decreased from 125 mL/hr to 75 mL/hr. -Held home potassium supplementation -Avoid nephrotoxic agents. -Continue to monitor renal function daily. 2. Acute elevated lipase, present on admission. Resolving. -Initial lipase mildly elevated at 587 with epigastric abdominal pain on admitting providers exam. CT abdomen and pelvis with contrast did not demonstrate acute pancreatitis. Elevated lipase not 5 times upper limit therefore not manufacturer representative of acute pancreatitis. -Continue normal saline as above. -Continue clear liquids and slowly advance diet as tolerated. 3. Leukocytosis, acuity unclear, present on admission. Active. -Patient previously had UTI which was adequately treated as urinalysis is negative and she completed unknown antibiotic from [place] and then switched to doxycycline 100 mg twice daily for 7 days. -Patient is afebrile, WBC are 19.3, unidentified source, abdominal CT is negative, UA is negative, chest x-ray negative, respiratory PCR negative. -Continue to monitor and if persistently elevated may consider blood dyscrasia. 4. Probable advanced dementia with failure to thrive and likely severe protein calorie malnutrition, present on admission. Presumed stable. -The patient's son reported that when he visited his mother in [place] early February she was at a normal baseline level of functioning, independent in ADLs and ambulated with a cane. Since then the patient has subsequently had a precipitous decline in cognitive function first initially thought to be related to urinary tract infection. Patient is continuing to decline, she is oriented to self only and minimally interactive. -Continue home sertraline 25 mg at bedtime and melatonin 3 mg at bedtime. -Patient's son describes continued weight loss, poor appetite with very little PO intake. Continue nutritional supplementation with Ensure or Boost with each meal. -Patient with progressive weakness and debility secondary to poor nutrition. -Patient's is being considered for hospice at her assisted living facility. 6. Hypertension, chronic, present on admission. Stable. -Continue home metoprolol succinate 200 mg daily. -Held triamterene/hydrochlorothiazide related to renal function and monitor blood pressure. 7. Hyperlipidemia, chronic, present on admission. Presumed stable. -Continue home simvastatin 20 mg daily. Disposition: Patient likely to discharge in 1-2 days once renal function improves/stabilizes either to nursing home facility for rehabilitation versus to her assisted living facility on comfort care/hospice.
--- NOTE | 2019-04-20 12:55 | PC.NURSE ---
Pt. is asleep and not being aroused for vitals. Pt has been awake from time of arrival. Son left the room to eat some lunch in the bistro.
--- NOTE | 2019-04-20 15:02 | PT.IIE ---
Current Diagnoses Acute kidney failure, unspecified (04/20/19) Surgical History (Last Updated 04/20/19 @ 04:03 by MOLLY Dyer) History of (Acute) History of lung surgery (Acute) History of total left hip arthroplasty (Acute) Medical History (Last Reviewed 04/20/19 @ 04:02 by MOLLY Dyer) Dehydration (Acute) Dyslipidemia (Acute) Elevated LFTs (Acute) Hypertension (Acute) Pancreatitis (Acute) Renal failure (ARF), acute on chronic (Acute) Physical Therapy Inpatient Evaluation/Re-Eval M1 PT/OT-IP Prior Functional Status Start: 04/20/19 08:57 Freq: NEEDED Status: Active Protocol: Document 04/20/19 15:02 DLM (Rec: 04/20/19 18:57 DLM [email or web address]) Medical Review Prior Functional Status Medical History Reviewed Yes Communication no deficits reported Mobility and Gait wheelchair bound, assist for transfers since moving to [place] Activities of Daily Living and IADL's assisted for all Social History Household Members none Living Arrangements Assisted Living Home Equipment Manual Wheelchair Employment Status Retired Additional Social History Comment Son lives in [facility], he recently moved pt from [facility] due to a decline in function and health, pt living at [facility] where she has 13/03 assist. M2 PT-IP Current Condition Start: 04/20/19 08:57 Freq: NEEDED Status: Active Protocol: Document 04/20/19 15:02 DLM (Rec: 04/20/19 18:57 DLM [email or web address]) Physical Therapy Current Condition Current Condition Evaluation Date 04/20/19 Treatment Diagnosis Renal failure, impaired mobility Onset Date 04/19/19 M3 PT-IP Subjective Start: 04/20/19 08:57 Freq: NEEDED Status: Active Protocol: Document 04/20/19 15:02 DLM (Rec: 04/20/19 18:57 DLM [email or web address]) Subjective Physical Therapy Visit Type Type Initial Evaluation Visit Start Time 14:30 Visit Stop Time 15:02 Total Visit Minutes 32 Number of AIR CONDITIONING MECHANIC Visits 0 Physical Therapy Visit Comments Patient Comments She does not want to get up Patient Goals none stated by pt, her Son reports he would like her to be more mobile and up with FWW Therapy Pain Assessment Pain When Pain Assessed At Rest Pain Present Pain Present Denied Pain M4 PT-IP Mobility and Gait Start: 04/20/19 08:57 Freq: NEEDED Status: Active Protocol: Document 04/20/19 15:02 DLM (Rec: 04/20/19 18:57 DL [email or web address]) PT-Bed Mobility Assessment Rolling Type of Rolling Roll to Right,Roll to Left Level of Assist Maximal Assistance Supine to Sit Supine to Sit Moderate Assistance,Maximum Assistance Sit to Supine Sit to Supine Moderate Assistance,Maximum Assistance Scooting Scooting to Edge of Bed Maximum Assistance Scooting Up and Down in Bed Dependent PT-Transfer Assessment Sit to and From Stand Sit to and from Stand Maximum Assistance,1 Person Assistance Equipment Transfer Assistive Device Gait Belt Transfers Transfer Destination Bedside Commode Transfer Technique Stand Pivot Transfer Ability Level of Assist Maximum Assistance,1 Person Assistance,2 Person Assistance Comments Mobility Comments pt grabs for rails and armrests during tranfers making the transfer more difficult, pt leans post in standing and while sitting on the edge of the bed, pt appears to be fearful during transfers, pt does bear weight on her LE's in standing, pt returned to bed after sitting up on bedside commode (no BM at this time, irene catheter in place) Gait Assessment Comments Gait Comments pt is unable to ambulate at this time PT-Balance Assessment Sitting Balance and Reactions Static Sitting Balance Ability Fair Dynamic Sitting Balance Ability Fair Standing Balance and Reactions Static Standing Balance Ability Poor Dynamic Standing Balance Ability Poor Comments Other Balance Tests/Deviations/Treatment pt able to sit erect on : bedside commode with SBA M5 PT-IP Objective Assessments Start: 04/20/19 08:57 Freq: NEEDED Status: Active Protocol: Document 04/20/19 15:02 DL (Rec: 04/20/19 18:57 [facility] [email or web address]) Orientation Orientation/Cognition Level of Alertness Confusional State Orientation Name Safety Awareness Decreased Safety Awareness Memory Description Short Term Impaired,Intermediate Impaired Gross Range of Motion Upper Extremity ROM Assessment Within Functional Limits Lower Extremity ROM Assessment Within Functional Limits Strength Comments Strength Comments pt did not participate in manual muscle testing, noted pt moving all extremities functionally, 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, she is able to bear weight on her LE's in standing, she has difficulty following instructions, she needs a lot of encouragement to do any mobility Coordination Assessment Assessment Coordination Comments impaired motor planning Sensation Assessment Comments Sensation Comments unable to do testing due to pt impaired cognition Muscle Tone Muscle Tone WNL Yes M7 PT-IP Assessment and Plan Start: 04/20/19 08:57 Freq: NEEDED Status: Active Protocol: Document 04/20/19 15:02 DLM (Rec: 04/20/19 18:57 DLM [email or web address]) PT Summary Assessment and Plan Potential Rehabilitation Potential Poor Status of Condition at Evaluation Unstable Summary Impairments Strength,Balance,Cognition,Bed Mobility,Transfers,Gait, Activity Tolerance Assessment Summary Daija is alert but has decreased participation in therapy. She needed a lot of encouragment to get up to the bedside commode this visit. She needs 1-2 person assist due to pt resisting the transfer by grapping rails and armrests. She appears fearful during mobility. She is receiving 24/7 assist at [facility] before this admission. She appears to have poor rehab potential at this time. Will discharge physical therapy and defer further transfers to nursing care. If patients medical status improves and her desire to participate in therapy improves than therapy can be resumed at a later time. Goals Other Goals no goals set at this time Frequency of Treatment Frequency Of Treatment Discharge Recommendations To Nursing Amount of Assist Needed 1 Person Assist,2 Person Assist Discharge Recommendations PT Discharge Recommendations Home with 24/7 Assist
--- NOTE | 2019-04-20 15:10 | CM.DANOTE ---
Patient is an 83 year old female who was admitted on 04/19/19 for Confusion. Pt has [employer] [facility] ADV for insurance and her PCP is not listed. EMR was reviewed. Per MD, pt recently moved to the area and now has renal failure and if pt does not stabilize or improve then possible change to Comfort Care. SW met bedside with pt, who did not participate in discussion, and adult son/DPOA Cliff who confirms that he recently moved his mother to [place] from the [facility] after she began displaying signs of dementia and failure to thrive. Pt moved into [facility] within the past week and was being assessed to determine if she would be on their comfort care path or begin PT/OT for strengthening. Pt has not been eating or drinking and son states that he has to tell his mom to take a sip of Ensure or water every 10 min or so. Son states he would consider temporary dialysis if needed for stabilization but currently not interested in extreme measures. Pt not currently enrolled in Hospice services but son aware that if pt continues to decline and failure to thrive then comfort care an option. Son preference would be for pt to be able to return to [facility] if possible and aware that they will be involved in coordination of d/c and confirmation they can meet her needs. SW [place] [facility] [place] [facility] staff to further discuss pt's d/c needs. PT/OT pending. Plan: SW to follow closely after PT/OT eval and recommendations and to determine if pt improves and can safely return to [facility] vs Comfort Care if pt continues to decline. KATHERYN Vigil Discharge Planning/Care Management CM Discharge Assessment Start: 04/20/19 15:07 Freq: Status: Active Protocol: Document 04/20/19 15:07 (Rec: 04/20/19 15:10 [id number]) Discharge Planning Assessment Assigned Order Packer KATHERYN Delong DPYESENIA/Assigned Designee Name son Cliff Contact Information [phone] Advance Directives? Yes Advance Directives on File Yes History Provided By Family Member,Medical Record Has Patient been admitted in last 30 No days? Prior Living Arrangements Assisted Living Household Members none Type of transporation used prior to Relies on Others admit Facility Name Admitted From: [facility]isted Living Willing to Return to Facility? Yes Independent with ADL's No Is patient alert and oriented? No Needs Assistance With Eating,Managing Medications, Home Chores / Shopping Caregiver for Another No Comment Waiting for PT eval and recommendations and see if pt makes progress Barriers to Discharge No Discharge Plan Assisted Living Facility Transportation Arrangement Son bedside and likely can provide transport if stable for return to [facility] Whiteboard Updated in Patient Room with Yes name and ext. # of Order Packer Review Status In Process Please Provide Date Initial DC 04/20/19 Assessment Was Performed Next Review Type Continued Stay Review
[2019-04-20] MEDS: SERTRALINE 25 MG TABLET PO (20:48)
[2019-04-21] VITALS (8 sets, daily range): BP systolic 117–137; BP diastolic 58–67; PULSE 60–65; RESP 16; TEMP 36.4–37.6; O2SAT 96–100
[2019-04-21 06:04] LABS: Add Manual Diff / Slide Review NO; Basophils Absolute Auto 100 /uL (0-100); Basophils Percent Auto 0.8 % (0-2); Eosinophils Absolute Auto 300 /uL (0-450); Eosinophils Percent Auto 1.7 % (2-4); Hematocrit 23.2 % (36-46); Hemoglobin 7.5 g/dL (12.0-16.0); Lymphocytes Absolute Auto 500 /uL (1100-4500); Lymphocytes Percent Auto 3.5 % (25-40); Mean Corpuscular HGB Conc 32.1 % (30-36); Mean Corpuscular Hemoglobin 28.8 PG (26-34); Mean Corpuscular Volume 89.6 fL (80-100); Monocytes Absolute Auto 700 /uL (0-900); Monocytes Percent Auto 4.3 % (3-14); Neutrophils Absolute Auto 14000 /uL (1500-7000); Neutrophils Percent Auto 89.7 % (50-75); Platelet Count 276 X10^3/uL (150-400); Red Blood Cell Count 2.59 X10^6/uL (4.0-5.2); Red Cell Distribution Width 14.6 % (11.6-14.8); White Blood Cell Count 15.6 X10^3/uL (4.5-11.0)
[2019-04-21 06:11] LABS: Alanine Aminotransferase 81 IU/L (9-52); Albumin 2.1 g/dL (3.5-5.0); Albumin Globulin Ratio 0.7 (1.0-2.8); Alkaline Phosphatase 124 U/L (38-126); Aspartate Aminotransferase 48 IU/L (14-36); BUN Creatinine Ratio 22.9 (6-22); Bilirubin Total 0.3 mg/dL (0.2-1.3); Blood Urea Nitrogen 103 mg/dL (7-17); Calcium 9.1 mg/dL (8.4-10.2); Carbon Dioxide 19 mmol/L (22-32); Chloride 105 mmol/L (98-107); Estimated Glomerular Filt Rate 9.4 mL/min (>60); Glucose 73 mg/dL (80-110); HEMOLYSIS 16 (0-50); Lipase 310 U/L (23-300); Potassium 4.5 mmol/L (3.4-5.1); Sodium 131 mmol/L (137-145); Total Protein 5.1 g/dL (6.3-8.2)
--- NOTE | 2019-04-21 06:49 | PC.NURSE ---
NOC note: Pt is alert and orient to self. IVF running as ordered. Fernando patent drainf clear yellow urine. Pt denied pain. 1-2pa with bed mobility. Pt rested quietly most of the night.
[2019-04-21] MEDS: SODIUM CHLORIDE 0.9% 1,000 ML 125 ML IV ×2 (08:31→21:19)
[2019-04-21] MEDS: METOPROLOL ER 50 MG TABLET 200 MG PO (08:31)
[2019-04-21] MEDS: HEPARIN 5,000 UNIT/ML VIAL 5000 UNIT SUBCUT ×2 (08:31→20:32)
[2019-04-21] MEDS: ONDANSETRON 4 MG/2 ML INJ IV (08:32)
--- NOTE | 2019-04-21 12:22 | P.PN_ITS ---
Subjective Subjective Date Patient Seen: 04/21/19 Time Patient Seen: 12:51 Interval history: Daija Bar is an 83-year-old female with a past medical history significant for hypertension, chronic kidney disease stage III, and probable advanced dementia who presented to the ED from her PCP's office for acute kidney injury on chronic kidney disease. The patient is resting in bed comfortably. She is quite weak and debilitated with generalized weakness however L>R. She speaks quietly and mumbles therefore, she is somewhat difficult to understand. She denies pain. Discussed goals of care with her son who would like to continue to give her IV fluid to reverse her kidney injury if possible. I discussed with him today that if dialysis is started and improves her symptoms than it would likely need to continue manager terminal. I told him we are unsure at this time how significantly her kidney function will improve. Her Cr did improve slightly today, so we will continue fluids. She has eaten slightly more today, but only a cup of broth with encouragement. Exam Vital Signs (past 8 hours): - 04/21/19 06:00 04/21/19 08:00 Temperature 97.9 F 97.9 F Pulse Rate 64 65 Respiratory Rate 16 16 Blood Pressure 117/60 131/58 L Pulse Oximetry 98 97 Oxygen Delivery Method Room Air Oxygen Flow Rate 0 Narrative Exam Narrative: General: Elderly thin and frail female lying in bed and in no acute distress, probable advanced dementia with short and long-term memory recall deficit but otherwise appropriately interactive. HEENT: Normocephalic, atraumatic. External ears without defect. Pupils equal, round, and reactive to light Anicteric sclerae, moist conjunctivae, and no lid lag. Neck: Poor skin turgor with full range of motion. No jugular venous distension. No lymphadenopathy or thyromegaly. Temporal wasting. Cardiovascular: Regular rate and rhythm without murmurs, rubs, or gallops appreciated. Pulmonary: Clear to auscultation bilaterally without crackles, wheezes, or rhonchi. Normal respiratory effort without use of accessory muscles. Abdomen: Soft, bowel sounds present, nontender, nondistended. No hepatosplenomegaly or masses appreciated. Extremities: No clubbing, cyanosis, or edema. Generalized weakness L>R. Diffuse muscle wasting. Skin: Normal temperature, turgor, and texture; no rash, ulcers, or subcutaneous nodules appreciated. Neurological: Cranial nerves grossly intact. Psychiatric: Depressed mood and flat affect. Alert and oriented to person only. Probable advanced dementia with short and long-term memory impairment. Objective Labs Result Diagrams: 04/21/19 05:35 04/21/19 05:35 Labs: Laboratory Results - last 24 hr 04/21/19 04/21/19 05:35 05:35 WBC 15.6 H RBC 2.59 L Hgb 7.5 L Hct 23.2 L MCV 89.6 MCH 28.8 MCHC 32.1 RDW 14.6 Plt Count 276 Neut % (Auto) 89.7 H Lymph % (Auto) 3.5 L Baxter % (Auto) 4.3 Eos % (Auto) 1.7 L Baso % (Auto) 0.8 Neut # (Auto) 41125 H Lymph # (Auto) 500 L Baxter # (Auto) 700 Eos # (Auto) 300 Baso # (Auto) 100 Sodium 131 L Potassium 4.5 Chloride 105 Carbon Dioxide 19 L BUN 103 H Creatinine 4.50 H Estimated GFR 9.4 L BUN/Creatinine Ratio 22.9 H Glucose 73 L Calcium 9.1 Total Bilirubin 0.3 AST 48 H ALT 81 H Alkaline Phosphatase 124 D Total Protein 5.1 L Albumin 2.1 L Globulin 3.0 Albumin/Globulin Ratio 0.7 L Lipase 310 H Assessment & Plan Assessment & Plan narrative: Daija Bar is an 83-year-old female with a past medical history significant for hypertension, chronic kidney disease stage III, and probable advanced dementia who presented to the ED from her PCP's office for acute kidney injury on chronic kidney disease. 1. Acute kidney injury on chronic kidney disease stage III, present on admission. Active. - this may be responsible for some decreased PO intake and dehydration from uremic symptoms, or it could be a result of decresed PO intake and dehydration. Suspect the latter. -Likely secondary to previous nephrotoxic antibiotic therapy in [place] and prerenal azotemia from dehydration. -Initial creatinine 5.2. Marginal improvement with IV fluids creatinine now 4.5. Will continue to monitor for improvement. -Discussion with patient's son and DPOA Cliff Bar revealed they would be amenable to temporary dialysis but nothing long-term. -Continue normal saline 75 mL/hr. -Held home potassium supplementation -Avoid nephrotoxic agents. -Continue to monitor renal function daily. 2. Acute elevated lipase, present on admission. Resolving. -Initial lipase mildly elevated at 587 with epigastric abdominal pain on admitting providers exam. CT abdomen and pelvis with contrast did not demonstrate acute pancreatitis. Elevated lipase not 5 times upper limit therefore not operations support representative of acute pancreatitis. -Continue normal saline as above. -slowly advance diet as tolerated, today she is not hungry. 3. Leukocytosis, acuity unclear, present on admission. Active. -Patient previously had UTI which was adequately treated as urinalysis is negative and she completed unknown antibiotic from [place] and then switched to doxycycline 100 mg twice daily for 7 days. -Patient is afebrile, WBC are 19.3, unidentified source, abdominal CT is negative, UA is negative, chest x-ray negative, respiratory PCR negative. -Continue to monitor and if persistently elevated may consider blood dyscrasia. 4. Probable advanced dementia with failure to thrive and likely severe protein calorie malnutrition, present on admission. Presumed stable. -The patient's son reported that when he visited his mother in [place] early February she was at a normal baseline level of functioning, independent in ADLs and ambulated with a cane. Since then the patient has subsequently had a precipitous decline in cognitive function first initially thought to be related to urinary tract infection. Patient is continuing to decline, she is oriented to self only and minimally interactive. -Continue home sertraline 25 mg at bedtime and melatonin 3 mg at bedtime. -Patient's son describes continued weight loss, poor appetite with very little PO intake. Continue nutritional supplementation with Ensure or Boost with each meal. -Patient with progressive weakness and debility secondary to poor nutrition. -Patient's is being considered for hospice at her assisted living facility. 6. Hypertension, chronic, present on admission. Stable. -Continue home metoprolol succinate 200 mg daily. -Held triamterene/hydrochlorothiazide related to renal function and monitor blood pressure. 7. Hyperlipidemia, chronic, present on admission. Presumed stable. -Continue home simvastatin 20 mg daily. Disposition: Patient likely to discharge in 1-2 days once renal function impr oves/stabilizes either to alf facility for rehabilitation versus to her assisted living facility on comfort care/hospice.
--- NOTE | 2019-04-21 15:18 | PT-IP ANOTE ---
Pt evaluated 04/20/19 and deemed not appropriate for PT due to lack of participation. Initial PT order was discharged. New orders received <24 hours later. Per conversation with hospitalist, PT eval (or re-eval) will be held until 04/22/19 at which time patient's status and appropriateness for therapy will be assessed again.
[2019-04-21] MEDS: ACETAMINOPHEN 325 MG TABLET 650 MG PO (16:26)
[2019-04-21] MEDS: SERTRALINE 25 MG TABLET PO (20:32)
--- NOTE | 2019-04-21 21:35 | PC.NURSE ---
A&O to self. 98%RA. pt only had a few bites of jello for dinner. R. buttock has SII pressure injury. q2turn. irene patent, draining clear yellow urine. pt able to make needs known. call light in reach. bed alarm active.
[2019-04-22] VITALS (10 sets, daily range): BP systolic 124–155; BP diastolic 54–64; PULSE 60–66; RESP 12–16; TEMP 36.2–37.1; O2SAT 96–99; BMI 22.3
--- NOTE | 2019-04-22 00:49 | PC.NURSE ---
Addendum entered by Sujey Marley R.N. 04/22/19 06:48: Slept between being repositioned. Asking about family intermittently so reassured they would be in later this morning. Cooperative with cares. Original Note: Patient is alert and awakens easily but is only oriented to self and birthday. Breath sounds CTA with RA sat of 98%. HRR. Denies nausea. BT present and abdomen is soft. Indwelling catheter is patent; urine is clear yellow. Not turning self so is being repositioned q2h. Red spot on right buttock noted but is not open and appears to be more of a scratch than a pressure injury. Denies pain. SCD's applied (had refused prior to shift change as did not like the intermittent pumping action. Fall risk score is high per RN discretion as patient unable to answer questions appropriately; bed alarm is activated.
[2019-04-22] MEDS: HEPARIN 5,000 UNIT/ML VIAL 5000 UNIT SUBCUT ×2 (09:17→22:13)
[2019-04-22] MEDS: ACETAMINOPHEN 325 MG TABLET 650 MG PO (09:17)
[2019-04-22] MEDS: METOPROLOL ER 50 MG TABLET 200 MG PO (09:18)
[2019-04-22 09:57] LABS: Add Manual Diff / Slide Review NO; Basophils Absolute Auto 100 /uL (0-100); Basophils Percent Auto 0.5 % (0-2); Eosinophils Absolute Auto 200 /uL (0-450); Eosinophils Percent Auto 1.4 % (2-4); Hematocrit 23.8 % (36-46); Hemoglobin 7.6 g/dL (12.0-16.0); Lymphocytes Absolute Auto 400 /uL (1100-4500); Lymphocytes Percent Auto 2.9 % (25-40); Mean Corpuscular Hemoglobin 28.8 PG (26-34); Mean Corpuscular Volume 90.1 fL (80-100); Monocytes Absolute Auto 500 /uL (0-900); Monocytes Percent Auto 3.8 % (3-14); Neutrophils Absolute Auto 13200 /uL (1500-7000); Neutrophils Percent Auto 91.4 % (50-75); Platelet Count 264 X10^3/uL (150-400); Red Blood Cell Count 2.64 X10^6/uL (4.0-5.2); Red Cell Distribution Width 14.6 % (11.6-14.8); White Blood Cell Count 14.4 X10^3/uL (4.5-11.0)
[2019-04-22 10:06] LABS: HEMOLYSIS < 15 (0-50); Potassium 4.1 mmol/L (3.4-5.1)
[2019-04-22 10:10] LABS: Albumin 2.2 g/dL (3.5-5.0); BUN Creatinine Ratio 18.7 (6-22); Blood Urea Nitrogen 88 mg/dL (7-17); Calcium 8.5 mg/dL (8.4-10.2); Carbon Dioxide 16 mmol/L (22-32); Chloride 106 mmol/L (98-107); Estimated Glomerular Filt Rate 8.9 mL/min (>60); Glucose 109 mg/dL (80-110); Magnesium 1.7 mg/dL (1.6-2.3); Phosphorous 4.5 mg/dL (2.8-4.1); Sodium 133 mmol/L (137-145)
--- NOTE | 2019-04-22 10:13 | OT.IP.TRT ---
Current Diagnoses Acute kidney failure, unspecified (04/20/19) Occupational Therapy Treatment Note M3 OT- IP Subjective and Pain Start: 04/20/19 14:11 Freq: Status: Active Protocol: Document 04/22/19 10:09 [facility] (Rec: 04/22/19 10:13 [facility] [id number]) OT- Subjective Occupational Therapy Visit Type Type Administrative Note Notes OT eval order recieved again on 04/21/19 . Per Hospitalist hold from OT eval until after results from kidney function received. Prior OT order was discharged due to pt prior was receiving assist for all OT needs
--- NOTE | 2019-04-22 10:27 | DIET.PN ---
Dietary Progress Note Assessment: 83y F referred to nutrition re: MNA 5 (malnourished), 5% wt loss in 6w, poor PO intake RD interviewed pt and pt's son. Pt's son noticed pt looked like she lost 10+ pounds since he last visited over 21 of February holiday. He reports a good meal intake is 4oz water and 1/8 doughnut (a favorite food). Pt finished 4oz juice and 8oz chicken broth this am. Pt on clear diet order r/t low renal fxn Transitioned to a center 2d before hospital stay which provides 3 meals/d. Pt's DIL is car rental manager there so will encourage PO intake. They also supplement c Boost/Ensure at home, will continue. HT: 154.9cm WT: 53.5kg UBW: 56.6kg BMI: 22.3 Labs: BUN 88 (H), Cr 4.7 (H), GFR 8.9 (L), Phos 4.5 (H), TP 5.1 (L), Alb 2.2 (L), Lipase 310 (H) Nutrition Diagnosis: Acute on Chronic Moderate PCM r/t renal dysfunction aeb abnormal lab values (BUN 88, Cr 4.7, GFR 8.9), <75% EER for 1mo, 5% wt loss in 6w, BMI 22.3 (low for age). Interventions: Recc conservatively ONS Ensure Clear bid to supplement kcals (30% of needs) and PRO (28% of needs) but moderating PRO r/t renal fxn. If advancing diet pls advance to renal, not full liquid, as pt Phos is high so discourage dairy intake. EERs: 1200kcal, 50g PRO (0.9g/kg renal/elder), 1600mL fluids Monitoring/Evaluations: following labs upon ONS Ensure Clear initiation, wt
[2019-04-22] MEDS: SODIUM CHLORIDE 0.9% 1,000 ML 125 ML IV (10:41)
--- NOTE | 2019-04-22 11:26 | PT-IP ANOTE ---
Per conversation with hospitalist, PT is holding until results of kidney function panel. Hospitalist to advise on timing of re-eval if appropriate. PT will continue to follow.
--- NOTE | 2019-04-22 13:04 | CM.DPC ---
lDCP/continued: Reviewed chart. Spoke with Dr. Arroyo in AM rounds. He reports that patient currently with poor renal function therefore, will hold off on Pt/OT evaluations today. Therapy aware. Patient currently resides at [facility] on [facility]# [phone]. P: Pending. Unclear d/c needs at this time. PT/OT evaluations when appropriate. KATHERYN Samuel
--- NOTE | 2019-04-22 14:57 | PM.PN.1 ---
Subjective Subjective Date Patient Seen: 04/22/19 Time Patient Seen: 14:58 Interval history: Daija Bar is an 83-year-old female with a past medical history significant for hypertension, chronic kidney disease stage III, and probable advanced dementia who presented to the ED from her PCP's office for acute kidney injury on chronic kidney disease. The patient is resting in bed comfortably. She is quite weak and debilitated with generalized weakness however L>R. She speaks quietly and mumbles therefore, she is somewhat difficult to understand. She denies pain. Her creatinine increased slightly to 4.7 today despite IV hydration. I believe this is due to advancing kidney failure. Her generalized weakness may be due to possible uremia, however per the son the wish is to avoid long-term dialysis. Presented options to the son today, including a trial of dialysis (however this seems unreasonable given the patient's wishes) or an evaluation by hospice. He was not ready to make that decision at this time, so he will continue to think about it. Exam Vital Signs (past 8 hours): - 04/22/19 08:00 04/22/19 08:39 04/22/19 12:00 Temperature 98.1 F 97.6 F Pulse Rate 63 64 Respiratory Rate 16 16 Blood Pressure 140/63 136/62 Pulse Oximetry 97 97 98 Oxygen Delivery Method Room Air Oxygen Flow Rate 0 Narrative Exam Narrative: General: Elderly thin and frail female lying in bed and in no acute distress, probable advanced dementia with short and long-term memory recall deficit but otherwise appropriately interactive. HEENT: Normocephalic, atraumatic. External ears without defect. Pupils equal, round, and reactive to light Anicteric sclerae, moist conjunctivae, and no lid lag. Neck: Poor skin turgor with full range of motion. No jugular venous distension. No lymphadenopathy or thyromegaly. Temporal wasting. Cardiovascular: Regular rate and rhythm without murmurs, rubs, or gallops appreciated. Pulmonary: Clear to auscultation bilaterally without crackles, wheezes, or rhonchi. Normal respiratory effort without use of accessory muscles. Abdomen: Soft, bowel sounds present, nontender, nondistended. No hepatosplenomegaly or masses appreciated. Extremities: No clubbing, cyanosis, or edema. Generalized weakness L>R. Diffuse muscle wasting. Skin: Normal temperature, turgor, and texture; no rash, ulcers, or subcutaneous nodules appreciated. Neurological: Cranial nerves grossly intact. Psychiatric: Depressed mood and flat affect. Alert and oriented to person only. Probable advanced dementia with short and long-term memory impairment. Objective Labs Result Diagrams: 04/22/19 09:40 04/22/19 09:40 Labs: Laboratory Results - last 24 hr 04/22/19 04/22/19 09:40 09:40 WBC 14.4 H RBC 2.64 L Hgb 7.6 L Hct 23.8 L MCV 90.1 MCH 28.8 MCHC 32.0 RDW 14.6 Plt Count 264 Neut % (Auto) 91.4 H Lymph % (Auto) 2.9 L Mckenzie % (Auto) 3.8 Eos % (Auto) 1.4 L Baso % (Auto) 0.5 Neut # (Auto) 34895 H Lymph # (Auto) 400 L Mckenzie # (Auto) 500 Eos # (Auto) 200 Baso # (Auto) 100 Sodium 133 L Potassium 4.1 Chloride 106 Carbon Dioxide 16 L BUN 88 H Creatinine 4.70 H Estimated GFR 8.9 L BUN/Creatinine Ratio 18.7 Glucose 109 Calcium 8.5 Phosphorus 4.5 H Magnesium 1.7 Albumin 2.2 L Assessment & Plan Assessment & Plan narrative: Daija Bar is an 83-year-old female with a past medical history significant for hypertension, chronic kidney disease stage III, and probable advanced dementia who presented to the ED from her PCP's office for acute kidney injury on chronic kidney disease. 1. Acute kidney injury on chronic kidney disease stage IV, present on admission. - Her Cr has stabliized around 4.7. -Likely secondary to previous nephrotoxic antibiotic therapy in [place] and prerenal azotemia from dehydration. -Initial creatinine 5.2. Marginal improvement with IV fluids initially but now seems to has stabilized. -Discussion with patient's son and DPOA Cliff Bar revealed they would be amenable to temporary dialysis but nothing long-term. I had a long discussion about this today, and given that her creatinine has stabilized is unlikely that she will be able to come off of dialysis or that a provider would offer this to her. -normal saline held today given lack of improvement -Held home potassium supplementation -Avoid nephrotoxic agents. -Continue to monitor renal function daily. 2. Acute elevated lipase, present on admission. Resolved. -Initial lipase mildly elevated at 587 with epigastric abdominal pain on admitting providers exam. CT abdomen and pelvis with contrast did not demonstrate acute pancreatitis. Elevated lipase not 5 times upper limit therefore not business banking representative of acute pancreatitis. -advance to renal diet. 3. Leukocytosis, acuity unclear, present on admission. Active. -Patient previously had UTI which was adequately treated as urinalysis is negative and she completed unknown antibiotic from [place] and then switched to doxycycline 100 mg twice daily for 7 days. -Patient is afebrile, WBC are 19.3 which is improved to 14 since admission. unidentified source, abdominal CT is negative, UA is negative, chest x-ray negative, respiratory PCR negative. -Continue to monitor and if persistently elevated may consider blood dyscrasia, although there is no protein gap which would indicate a myeloma. 4. Probable advanced dementia with failure to thrive and likely severe protein calorie malnutrition, present on admission. Presumed stable. -The patient's son reported that when he visited his mother in [place] early February she was at a normal baseline level of functioning, independent in ADLs and ambulated with a cane. Since then the patient has subsequently had a precipitous decline in cognitive function first initially thought to be related to urinary tract infection. Patient is continuing to decline, she is oriented to self only and minimally interactive. -Continue home sertraline 25 mg at bedtime and melatonin 3 mg at bedtime. -Patient's son describes continued weight loss, poor appetite with very little PO intake. Continue nutritional supplementation with Ensure or Boost with each meal. -Patient with progressive weakness and debility secondary to poor nutrition. -Patient's is being considered for hospice at her assisted living facility, pending decision by son whether to persue this now. 6. Hypertension, chronic, present on admission. Stable. -Continue home metoprolol succinate 200 mg daily. -Held triamterene/hydrochlorothiazide related to renal function and monitor blood pressure. 7. Hyperlipidemia, chronic, present on admission. Presumed stable. -Continue home simvastatin 20 mg daily. Disposition: Patient likely to discharge to care home facility for rehabilitation versus to her assisted living facility on comfort care/hospice. Pending decision by her son. She will have PT/OT evaluation tomorrow.
[2019-04-22] MEDS: SERTRALINE 25 MG TABLET PO (22:14)
[2019-04-23] VITALS (9 sets, daily range): BP systolic 113–142; BP diastolic 52–67; PULSE 58–101; RESP 16–20; TEMP 36.5–37.2; O2SAT 92–99
--- NOTE | 2019-04-23 00:36 | PC.NURSE ---
Addendum entered by Sujey Marley R.N. 04/23/19 02:12: Complains of 4/10 back pain so medicated with Tylenol. Also noted she has yet to fall asleep so medicated with Melatonin. Original Note: Patient is oriented to self and birthday but not age. Upon first entering room states I'm going to kick butt and when asked why she said I'm cold so provided warm blankets and is now content. When asked if she was having pain stated she was in terrible pain and when asked where she stated I'm kidding. Breath sounds CTA with RA sat of 97%. HRR with BP of 147/58. Denies nausea. BT present and abdomen is soft. Indwelling catheter is patent; urine is pale yellow. Does have a pinhead size open area on inner right buttock so will reposition mainly on sides minimizing time on back; barrier cream applied. Wearing bilateral calf SCD's. Denies pain. Fall risk high per RN discretion; bed alarm is activated.
[2019-04-23] MEDS: ACETAMINOPHEN 325 MG TABLET 650 MG PO ×3 (02:10→17:45)
[2019-04-23] MEDS: MELATONIN 3 MG TABLET PO (02:10)
[2019-04-23 06:21] LABS: Basophils Absolute Auto 100 /uL (0-100); Eosinophils Absolute Auto 400 /uL (0-450); Eosinophils Percent Auto 2.7 % (2-4); Hematocrit 21.1 % (36-46); Lymphocytes Absolute Auto 600 /uL (1100-4500); Lymphocytes Percent Auto 4.3 % (25-40); Mean Corpuscular HGB Conc 32.5 % (30-36); Mean Corpuscular Hemoglobin 28.9 PG (26-34); Mean Corpuscular Volume 88.8 fL (80-100); Monocytes Absolute Auto 600 /uL (0-900); Monocytes Percent Auto 4.5 % (3-14); Neutrophils Absolute Auto 11500 /uL (1500-7000); Neutrophils Percent Auto 87.5 % (50-75); Platelet Count 234 X10^3/uL (150-400); Red Blood Cell Count 2.37 X10^6/uL (4.0-5.2); Red Cell Distribution Width 14.8 % (11.6-14.8); White Blood Cell Count 13.2 X10^3/uL (4.5-11.0)
[2019-04-23 06:32] LABS: BUN Creatinine Ratio 19.6 (6-22); Blood Urea Nitrogen 88 mg/dL (7-17); Calcium 8.2 mg/dL (8.4-10.2); Carbon Dioxide 17 mmol/L (22-32); Chloride 107 mmol/L (98-107); Estimated Glomerular Filt Rate 9.4 mL/min (>60); Glucose 87 mg/dL (80-110); HEMOLYSIS < 15 (0-50); Magnesium 1.7 mg/dL (1.6-2.3); Potassium 3.8 mmol/L (3.4-5.1); Sodium 130 mmol/L (137-145)
[2019-04-23 06:41] LABS: Add Manual Diff / Slide Review SLIDE REVIEW; Hemoglobin 6.8 g/dL (12.0-16.0)
[2019-04-23 07:08] LABS: RBC Morphology Normal Morphology
[2019-04-23] MEDS: SODIUM CHLORIDE 0.9% FLUSH 10 ML IV ×2 (08:57→21:03)
[2019-04-23] MEDS: HEPARIN 5,000 UNIT/ML VIAL 5000 UNIT SUBCUT ×2 (08:59→21:03)
[2019-04-23] MEDS: METOPROLOL ER 50 MG TABLET 200 MG PO (09:03)
--- NOTE | 2019-04-23 10:04 | OT.IP.TRT ---
Current Diagnoses Acute kidney failure, unspecified (04/20/19) Occupational Therapy Treatment Note M3 OT- IP Subjective and Pain Start: 04/20/19 14:11 Freq: Status: Active Protocol: Document 04/23/19 09:59 [facility] (Rec: 04/23/19 10:04 [facility] [id number]) OT- Subjective Occupational Therapy Visit Type Type Administrative Note Notes Pt Hgb 6.8 and Hct 21.1, hospitalist states to treat pt 's anemia and therefore hold for OT eval today until pt more medically appropriate.
--- NOTE | 2019-04-23 10:25 | CM.DPC ---
DCP/continued: Reviewed chart. PT/OT evaluations currently pending. LIQUID FERTILIZER SERVICER placed call to [facility] on [address] ph# [phone] spoke with Moni. She reports patient has been at [facility] for very short amount of time. Son placed her there for respite care. Moni reports that they have been providing patient with assistance with all ADL's. Moni does report that they will need to do assessment prior to patient returning. LIQUID FERTILIZER SERVICER asked Moni if she could come today. She reports that she could. Spoke with Dr. Chi and she will be discussing goals of care and potential hospice today with patient and son. Moni reports that they work very well with [facility]. Moni would be more that happy for patient to return to [facility] with hospice. P: Pending. [facility] evaluating for patient's return when medically stable. PT/OT evaluations pending. Clinicals faxed to [facility]. CM team to continue to follow. KATHERYN Samuel
--- NOTE | 2019-04-23 13:57 | CM.DPC ---
Addendum entered by Erendira Murray 04/23/19 14:02: Received return phone call from Moni at [facility]. They can accept patient back but she will need to be enrolled on hospice services. Moni will attempt to reach son. [facility] can accept. LYUDMILA Original Note: DCP/continued: Reviewed chart. Spoke with Dr. Chi in AM rounds. She reports that she is unclear on whether or not patient's son want's hospice at [facility]. LICENSED DISPENSING OPTICIAN did receive call from Jyoti at [facility] re: referral over the w/e. LICENSED DISPENSING OPTICIAN attempted to meet with patient and son to discuss plan. Patient's son not at bedside but 2 grandson's were. They report that they will let son know that d/c search planner working on plan. Attempted to call son's cell# listed on demographic sheet and no ring or answer? Placed call to [facility], spoke with Moni she reports that they will accept back with hospice. She plans to come to [facility] today to do bedside assessment. Moni also reports that she will speak with son. Dr. Chi as well. P: Pending. Hopefully return to [facility] with [facility]. KATHERYN Samuel
--- NOTE | 2019-04-23 15:19 | P.PN_ITS ---
Subjective Subjective Date Patient Seen: 04/23/19 Interval history: Patient is an 83-year-old female admitted to the hospital with acute on chronic renal failure. The patient was given IV hydration with the hopes that her renal failure when improved. Despite IV hydration her creatinine has remained about the same. She does have good urine output. She denies any shortness of breath. She has no chest pain. The patient was also noted to be markedly anemic however she is asymptomatic. Her son is in route who is her [id number]. We will discuss long-term care including hospice versus palliative care given their desire not to pursue hip hemodialysis. Exam Vital Signs (past 8 hours): - 04/23/19 09:00 04/23/19 09:03 04/23/19 11:00 Temperature 98 F Pulse Rate 68 62 Respiratory Rate 18 Blood Pressure 142/57 H 142/57 H Pulse Oximetry 99 98 Oxygen Delivery Method Room Air Oxygen Flow Rate 0 Narrative Exam Narrative: Pleasant female somewhat confused but in no obvious distress Lungs: Decreased breath sounds Cardiac exam: Regular rate and rhythm normal S1-S2 with a 2/6 systolic ejection murmur Abdomen soft and nontender Extremities: 1+ edema bilateral Objective Labs Result Diagrams: 04/23/19 06:05 04/23/19 06:05 Labs: Laboratory Results - last 24 hr 04/23/19 04/23/19 06:05 06:05 WBC 13.2 H RBC 2.37 L Hgb 6.8 L* Hct 21.1 L MCV 88.8 MCH 28.9 MCHC 32.5 RDW 14.8 Plt Count 234 Neut % (Auto) 87.5 H Lymph % (Auto) 4.3 L [place] % (Auto) 4.5 Eos % (Auto) 2.7 Baso % (Auto) 1.0 Neut # (Auto) 16316 H Lymph # (Auto) 600 L [place] # (Auto) 600 Eos # (Auto) 400 Baso # (Auto) 100 RBC Morphology Normal morphology Sodium 130 L Potassium 3.8 Chloride 107 Carbon Dioxide 17 L BUN 88 H Creatinine 4.50 H Estimated GFR 9.4 L BUN/Creatinine Ratio 19.6 Glucose 87 Calcium 8.2 L Magnesium 1.7 Assessment & Plan Assessment & Plan narrative: cute kidney injury on chronic kidney disease stage IV, present on admission. - Her Cr has stabliized around 4.7. -Likely secondary to previous nephrotoxic antibiotic therapy in [place] and prerenal azotemia from dehydration. -Initial creatinine 5.2. Marginal improvement with IV fluids initially but now seems to has stabilized. -Discussion with patient's son and DPOA [place] revealed they would be amenable to temporary dialysis but nothing long-term. I had a long discussion about this today, and given that her creatinine has stabilized is unlikely that she will be able to come off of dialysis or that a provider would offer this to her. -normal saline held today given lack of improvement -Held home potassium supplementation -Avoid nephrotoxic agents. -Continue to monitor renal function daily. 2. Acute elevated lipase, present on admission. Resolved. -Initial lipase mildly elevated at 587 with epigastric abdominal pain on admitt ing providers exam. CT abdomen and pelvis with contrast did not demonstrate acute pancreatitis. Elevated lipase not 5 times upper limit therefore not auto claim representative of acute pancreatitis. -advance to renal diet. 3. Leukocytosis, acuity unclear, present on admission. Active. -Patient previously had UTI which was adequately treated as urinalysis is negative and she completed unknown antibiotic from [place] and then switched to doxycycline 100 mg twice daily for 7 days. -Patient is afebrile, WBC are 19.3 which is improved to 14 since admission. unidentified source, abdominal CT is negative, UA is negative, chest x-ray negative, respiratory PCR negative. -Continue to monitor and if persistently elevated may consider blood dyscrasia, although there is no protein gap which would indicate a myeloma. 4. Probable advanced dementia with failure to thrive and likely severe protein calorie malnutrition, present on admission. Presumed stable. -The patient's son reported that when he visited his mother in [place] early February she was at a normal baseline level of functioning, independent in ADLs and ambulated with a cane. Since then the patient has subsequently had a precipitous decline in cognitive function first initially thought to be related to urinary tract infection. Patient is continuing to decline, she is oriented to self only and minimally interactive. -Continue home sertraline 25 mg at bedtime and melatonin 3 mg at bedtime. -Patient's son describes continued weight loss, poor appetite with very little PO intake. Continue nutritional supplementation with Ensure or Boost with each meal. -Patient with progressive weakness and debility secondary to poor nutrition. -Patient's is being considered for hospice at her assisted living facility, pending decision by son whether to persue this now. 6. Hypertension, chronic, present on admission. Stable. -Continue home metoprolol succinate 200 mg daily. -Held triamterene/hydrochlorothiazide related to renal function and monitor blood pressure. 7. Hyperlipidemia, chronic, present on admission. Presumed stable. -Continue home simvastatin 20 mg daily. 8. Normocytic anemia, likely related to chronic renal failure, also related to rehydration. The patient will be started on IV Venofer and erythropoietin. Ken pratt discuss long-term plan with her son. Will defer blood transfusion at this time as patient does not appear to be symptomatic. Disposition: Patient likely to discharge to [facility] facility for rehabilitation versus to her assisted living facility on comfort care/hospice. Pending decision by her son. She will have PT/OT evaluation tomorrow.
[2019-04-23] MEDS: EPOETIN ALFA 10,000 UNIT/ML VIAL 10000 UNIT SUBCUT (16:25)
[2019-04-23] MEDS: IRON SUCROSE 200 MG in SODIUM CHLORIDE 0.9% 100 ML 220 ML IV (16:25)
[2019-04-23] MEDS: SERTRALINE 25 MG TABLET PO (21:03)
[2019-04-24] VITALS (10 sets, daily range): BP systolic 126–151; BP diastolic 58–81; PULSE 59–73; RESP 14–20; TEMP 36.3–36.9; O2SAT 93–98
[2019-04-24] MEDS: ACETAMINOPHEN 325 MG TABLET 650 MG PO ×2 (02:17→11:18)
--- NOTE | 2019-04-24 03:40 | PC.NURSE ---
Pt reports frontal headache. Pt states she has this type of headache in the recent past. Denies vision changes, other neuro symptoms. Pt stated tylenol has helped this headache in the past. 650mg PO tylenol given with good effect per pt. Pt VSS, on 200mg metoprolol ER daily, BP 140/60's. Pt orientation improved, able to state situation, place (but not town), birthday. Pt needs encouragement to take sips of water at bedside overnight, needs assist with cup due to weakness. Pt turned q2hrs overnight. Barrier cream applied to buttocks. Pt son to further discuss plan of care today with provider and CM.
[2019-04-24 07:11] LABS: Add Manual Diff / Slide Review NO; Basophils Absolute Auto 100 /uL (0-100); Basophils Percent Auto 1.1 % (0-2); Eosinophils Absolute Auto 500 /uL (0-450); Eosinophils Percent Auto 4.2 % (2-4); Hematocrit 21.5 % (36-46); Lymphocytes Absolute Auto 600 /uL (1100-4500); Lymphocytes Percent Auto 5.5 % (25-40); Mean Corpuscular HGB Conc 32.8 % (30-36); Mean Corpuscular Hemoglobin 28.9 PG (26-34); Mean Corpuscular Volume 88.2 fL (80-100); Monocytes Absolute Auto 600 /uL (0-900); Monocytes Percent Auto 5.1 % (3-14); Neutrophils Absolute Auto 9800 /uL (1500-7000); Neutrophils Percent Auto 84.1 % (50-75); Platelet Count 261 X10^3/uL (150-400); Red Blood Cell Count 2.43 X10^6/uL (4.0-5.2); Red Cell Distribution Width 15.2 % (11.6-14.8); White Blood Cell Count 11.6 X10^3/uL (4.5-11.0)
[2019-04-24 07:20] LABS: Chloride 105 mmol/L (98-107); HEMOLYSIS < 15 (0-50)
[2019-04-24 07:22] LABS: BUN Creatinine Ratio 19.3 (6-22); Blood Urea Nitrogen 87 mg/dL (7-17); Carbon Dioxide 16 mmol/L (22-32); Estimated Glomerular Filt Rate 9.4 mL/min (>60); Glucose 76 mg/dL (80-110); Magnesium 1.6 mg/dL (1.6-2.3); Potassium 3.6 mmol/L (3.4-5.1); Sodium 129 mmol/L (137-145)
--- NOTE | 2019-04-24 08:51 | PC.NURSE ---
Addendum entered by Janie Moran R.N. 04/24/19 14:30: Pt given suppository for no BM since 04/19, no results yet but passing flatus. Two assist back to bed, gait is poor. Bed alarm on. Original Note: Patient alert to self and place, denies pain and nausea. Two assist with gait bet to chair, took a few steps. Denies dizziness and lightheadedness. BP 151/75 HR 67 while sitting at edge of bed. Chair alarm placed.
[2019-04-24] MEDS: METOPROLOL ER 50 MG TABLET 200 MG PO (09:30)
[2019-04-24] MEDS: DOCUSATE 100 MG CAPSULE PO (09:30)
[2019-04-24] MEDS: HEPARIN 5,000 UNIT/ML VIAL 5000 UNIT SUBCUT (09:30)
[2019-04-24] MEDS: SODIUM CHLORIDE 0.9% FLUSH 10 ML IV ×2 (09:30→21:07)
[2019-04-24] MEDS: BISACODYL 10 MG SUPP PR (11:17)
--- NOTE | 2019-04-24 11:20 | PT.IPTN ---
Current Diagnoses Acute kidney failure, unspecified (04/20/19) Physical Therapy Treatment Note M2 PT-IP Current Condition Start: 04/20/19 08:57 Freq: NEEDED Status: Active Protocol: Document 04/20/19 15:02 DLM (Rec: 04/20/19 18:57 DLM [id number]) Physical Therapy Current Condition Current Condition Evaluation Date 04/20/19 Treatment Diagnosis Renal failure, impaired mobility Onset Date 04/19/19 M3 PT-IP Subjective Start: 04/20/19 08:57 Freq: NEEDED Status: Active Protocol: Document 04/24/19 12:04 GGD (Rec: 04/24/19 12:04 [id number] [id number]) Subjective Physical Therapy Visit Type Notes D/C PT per MD. M4 PT PT Summary Assessment and Plan Frequency of Treatment Frequency Of Treatment Discharge
--- NOTE | 2019-04-24 11:25 | DIET.PN ---
Dietary Progress Note Assessment: 83y F referred to nutrition re: MNA 5 (malnourished), 5% wt loss in 6w, poor PO intake Pt continues to have low PO intake on renal diet (a few bites to 50% in past 2d). Sending Ensure Clear c meals. Pt on clear diet order r/t low renal fxn Transitioned to a center 2d before hospital stay which provides 3 meals/d. Pt's DIL is manager environmental there so will encourage PO intake. They also supplement c Boost/Ensure at home, will continue. HT: 154.9cm WT: 53.5kg UBW: 56.6kg BMI: 22.3 Labs: BUN 88 (H), Cr 4.7 (H), GFR 8.9 (L), Phos 4.5 (H), TP 5.1 (L), Alb 2.2 (L), Lipase 310 (H) Nutrition Diagnosis: Acute on Chronic Moderate PCM r/t renal dysfunction aeb abnormal lab values (BUN 88, Cr 4.7, GFR 8.9), <75% EER for 1mo, 5% wt loss in 6w, BMI 22.3 (low for age). Interventions: Recc conservatively ONS Ensure Clear bid to supplement kcals (30% of needs) and PRO (28% of needs) but moderating PRO r/t renal fxn. If advancing diet pls advance to renal, not full liquid, as pt Phos is high so discourage dairy intake. EERs: 1200kcal, 50g PRO (0.9g/kg renal/elder), 1600mL fluids Monitoring/Evaluations: following labs upon ONS Ensure Clear initiation, wt
--- NOTE | 2019-04-24 12:57 | OT.IP.TRT ---
Current Diagnoses Acute kidney failure, unspecified (04/20/19) Occupational Therapy Treatment Note M3 OT- IP Subjective and Pain Start: 04/20/19 14:11 Freq: Status: Active Protocol: Document 04/24/19 12:52 PJM (Rec: 04/24/19 12:57 PJM [id number]) OT- Subjective Occupational Therapy Visit Type Type Administrative Note Visit Start Time 12:45 Notes Per chart notes, pt's d/c plan is now return to [facility] with Hospice. OT to sign off.
--- NOTE | 2019-04-24 15:37 | P.PN_ITS ---
Subjective Subjective Date Patient Seen: 04/24/19 Interval history: Patient is an 83-year-old female admitted to the hospital for acute renal failure. Since admission she was given IV hydration. It however renal failure has not improved. The patient has no specific complaints. After discussion with her son plans have been made for the patient to transition to hospice. She is anemic. We have deliberately elected not to transfuse her and she will be followed by hospice at her facility. Exam Vital Signs (past 8 hours): - 04/24/19 07:51 04/24/19 08:28 04/24/19 09:30 Temperature 97.3 F L Pulse Rate 67 67 Respiratory Rate 16 Blood Pressure 151/75 H 151/75 H Pulse Oximetry 98 98 04/24/19 12:34 Temperature 98.4 F Pulse Rate 59 L Respiratory Rate 20 Blood Pressure 146/63 H Pulse Oximetry 98 Oxygen Delivery Method Room Air Oxygen Flow Rate 0 Narrative Exam Narrative: Elderly female resting in bed in no obvious distress Lungs: Decreased breath sounds but clear to auscultation Cardiac exam: Regular rate and rhythm normal S1-S2 with a 2/6 systolic ejection murmur Abdomen: Soft nontender nondistended Extremity: 1+ pitting edema bilaterally Objective Labs Result Diagrams: 04/24/19 06:41 04/24/19 06:41 Labs: Laboratory Results - last 24 hr 04/24/19 04/24/19 06:41 06:41 WBC 11.6 H RBC 2.43 L Hgb 7.0 L Hct 21.5 L MCV 88.2 MCH 28.9 MCHC 32.8 RDW 15.2 H Plt Count 261 Neut % (Auto) 84.1 H Lymph % (Auto) 5.5 L [place] % (Auto) 5.1 Eos % (Auto) 4.2 H Baso % (Auto) 1.1 Neut # (Auto) 9800 H Lymph # (Auto) 600 L [place] # (Auto) 600 Eos # (Auto) 500 H Baso # (Auto) 100 Sodium 129 L Potassium 3.6 Chloride 105 Carbon Dioxide 16 L BUN 87 H Creatinine 4.50 H Estimated GFR 9.4 L BUN/Creatinine Ratio 19.3 Glucose 76 L Calcium 8.0 L Magnesium 1.6 Assessment & Plan Assessment & Plan narrative: 1. Acute renal failure suspect acute tubular necrosis from prior antibiotic therapy. Despite IV hydration and patient's renal failure has remained the same. The patient's son who is her power work workers compensation attorney does not wish to pursue dialysis. Plans underway for hospice care once she returns back to her prior facility. Will discontinue daily labs. 2. Elevated lipase, resolved Doubt pancreatitis 3. Advanced dementia without evidence of behavioral disturbance 4. Normocytic anemia, will hold on transfusion given the patient is On hospice at this time. Patient received IV iron in erythropoietin. 5. Hypertension, present on admission continue current therapy 6. Hyperlipidemia, will defer statin at this time 7. Hyponatremia, no further therapy indicated. Anticipate discharge to her facility on Monday.
--- NOTE | 2019-04-24 19:10 | PC.NURSE ---
Addendum entered by Emily Cain R.N. 04/24/19 21:27: Pt had relatively uneventful evening. Remains forgetful/confused at times. HL<intact/patent. Call light w/in reach, bed alrm on for pt safety. Continue w/plan of care. Original Note: Pt resting quietly at this time. Denies discomfort when asked. Lungs clear/diminished at bases, SpO2 93% RA. HL LFA intact/patent. Call light w/in reach, bed alarm on for pt safety.
[2019-04-24] MEDS: SERTRALINE 25 MG TABLET PO (21:10)
[2019-04-25 02:15] VITALS: BP 134/57; PULSE 71; RESP 18; TEMP 36.4; O2SAT 99
[2019-04-25 05:52] VITALS: BP 143/61; PULSE 69; RESP 18; TEMP 36.6; O2SAT 98
[2019-04-25 07:00] VITALS: O2SAT 98
[2019-04-25 08:27] VITALS: BP 142/62; PULSE 73; RESP 16; TEMP 36.6; O2SAT 98
[2019-04-25] MEDS: DOCUSATE 100 MG CAPSULE PO (09:22)
[2019-04-25] MEDS: METOPROLOL ER 50 MG TABLET 200 MG PO (09:22)
[2019-04-25] MEDS: SODIUM CHLORIDE 0.9% FLUSH 10 ML IV (09:22)
[2019-04-25] MEDS: ACETAMINOPHEN 325 MG TABLET 650 MG PO (09:22)
--- NOTE | 2019-04-25 10:06 | P.DS_ITS ---
History of Present Illness History of Present Illness Date Patient Seen: 04/25/19 Chief complaint: confusion Narrative: Ms Daija Bar is an 83-year-old female with a history significant for impaired memory, hypertension and chronic renal failure stage III who presents to the ER today sent in by her primary care provider for acute on chronic renal failure. The patient is seen with her son present who provides essentially all the medical background. Patient is a poor historian and is unable to provide meaningful information. The [facility] [place] [facility] the son received a call that the patient was wandering the halls and altered. At the end of February or early March. The patient was taken to the hospital by her son who traveled [place] and evaluated in the ER found to have UTI and after which the patient was placed in a assisted living facility in [place]. Apparently at that time per the son the patient had chronic renal failure stage 3. While at that facility the patient essentially stopped eating and drinking so her son brought his mother to [place] 2 weeks ago and she was placed at [facility] would be und hospice last Monday. The patient and her son do not want dialysis for markedly elevated BUN and creatinine. The only complaint elicited from the patient as she has a headache. Upon arrival in the ER the patient has a temperature of 97.8?, heart rate of 64, blood pressure 118/66, respirations 16 and saturating 99% on room air. On abdominal CT the patient has normal liver and gallbladder, pancreas is normal and a 4 mm basilar nodule is noted. On chest x-ray no mention, there is a trace blunting of less cough stool phrenic angle thought to be scarring versus effusion. On laboratory analysis the patient has elevated white count at 19.3, hemoglobin of 19, hematocrit of 30.9, platelets of 387. Hyponatremic at 129, potassium is 5.0 with a BUN of 111 and creatinine of 5.2. She has a total bilirubin of 0.4, AST of 131, ALT of 149 and alkaline phosphatase of 208. She has elevated lipase at 587. On coags patient she S of PT is 13.1 with a INR of 1 of 28. Troponin is negative. Discussed care plan with the patient's son who requests no aggressive interventions and refuses dialysis. As such the patient is admitted here with intention to attempt rehydration with normal saline. It was noted the patient may not benefit from the intervention and as such may need to consider comfort care measures. Discharge Providers Provider Date of admission: 04/20/19 10:10 Discharge Date: 04/25/19 Consults: 04/19/19 23:03 Consult to Dietitian, Adult Routine Comment: Reason For Exam: assessed at risk, weight loss >6lbs Consult to Pastoral Services Routine Comment: would like someone to talk with Consult to Plant Utility Person Routine Comment: 04/19/19 23:07 Consult to Dietitian, Adult Routine Comment: Reason For Exam: poor dietary intake Consult to Discharge Planning Routine Comment: Per son patient is at [facility] on Hospice Consult to Occupational Therapy Evaluate & Treat Comment: weakness Physician Instructions: Evaluate and treat Consult to Physical Therapy Evaluate & Treat Comment: weakness Physician Instructions: Evaluate and Treat 04/21/19 12:51 Consult to Physical Therapy Evaluate & Treat Comment: Physician Instructions: Evaluate and Treat 04/21/19 12:52 Consult to Occupational Therapy Evaluate & Treat Comment: Physician Instructions: Evaluate and treat Discharge provider: Jacey Chi MD Summary Hospital Course Discharge Diagnosis: 1. Acute on chronic renal failure, stage IV 2. Normocytic anemia 3. Dementia 4. Hypertension 5. Hyperlipidemia 6. Hyponatremia Hospital Course: The patient is a 83-year-old female with known stage 3 chronic kidney disease. It she developed a precipitous drop in her renal function and was directed to admission by her PCP. This son who is her power of associate curator was clear he did not want dialysis. The patient does have severe dementia. The patient was given a trial of IV hydration with the thought that this may improve her renal insufficiency. Unfortunately her creatinine remained essentially the same. After long discussion with the son he elected to pursue hospice care for his mother. She had her IV fluids discontinued. Her appetite picked up although still was suboptimal. She had no specific complaints. She was found to be anemic and given the decision to move towards hospice she was not given a transfusion. The patient did give 1 dose of Venofer, and 1 dose of erythropoietin. She essentially remained without any specific complaints. She was deemed appropriate for discharge to [facility] with ongoing care with hospice. The patient had previously been at this facility. Her son was anxious to get her back there. Patient was discharged there accordingly. Status at Discharge Cognitive/behavioral status at discharge: confused Functional status at discharge: uses cane/walker Overall status at discharge: patient is not back to baseline Time Spent with Patient Time spent: Less than 30 minutes Exam Vital Signs (past 8 hours): - 04/25/19 02:15 04/25/19 05:52 04/25/19 07:00 Temperature 97.6 F 97.9 F Pulse Rate 71 69 Respiratory Rate 18 18 Blood Pressure 134/57 L 143/61 H Pulse Oximetry 99 98 98 04/25/19 08:27 Temperature 97.9 F Pulse Rate 73 Respiratory Rate 16 Blood Pressure 142/62 H Pulse Oximetry 98 Oxygen Delivery Method Room Air Oxygen Flow Rate 0 Narrative Exam Narrative: Pleasant female resting comfortably with no complaints Lungs: Clear to auscultation Cardiac exam: Regular rate and rhythm normal S1-S2 with a 2/6 systolic ejection Abdomen: Soft nontender nondistended Extremities: No edema Skin exam: No lesion Objective Labs Result Diagrams: 04/24/19 06:41 04/24/19 06:41 Discharge Plan Discharge Plan Patient Disposition: Assisted Living Transfer to: [facility] Other facility: [facility] Med Rec/Prescriptions Prescriptions: Continued metoprolol succinate 200 mg Tablet Extended Release 24 Hr 200 mg PO DAILY RF: 0 ascorbic acid (vitamin C) [Vitamin C] 1,000 mg Tablet Extended Release 1,000 mg PO DAILY RF: 0 melatonin 3 mg Tablet 3 mg PO BEDTIME PRN (Reason: Sleep) RF: 0 sertraline 25 mg Tablet 25 mg PO BEDTIME RF: 0 PreserVision AREDS-2 [id number] de-irgb-po-mg Capsule 1 tab PO BID RF: 0 Discontinued potassium chloride 10 mEq Capsule, Extended Release 10 meq PO DAILY RF: 0 flaxseed oil 1,000 mg Capsule 1,000 mg PO WEEKLY RF: 0 simvastatin 20 mg Tablet 20 mg PO DAILY RF: 0 triamterene-hydrochlorothiazid 37.5-25 mg Tablet 1 tab PO DAILY RF: 0 coenzyme Q10 [Co Q-10] 200 mg Capsule 200 mg PO BID RF: 0 calcium carbonate-vitamin D3 [Calcium with Vitamin D] 600 mg(1,500mg) -400 unit Tablet 1 tab PO BID RF: 0 cholecalciferol (vitamin D3) [Vitamin D3] 2,000 unit Capsule 2,000 unit PO DAILY RF: 0 loperamide [Anti-Diarrheal (loperamide)] 2 mg Tablet 2 mg PO BEDTIME RF: 0 Discharge Orders: Discharge (Order); Ordered 04/25/19 Ordered By: Jacey Chi Discharge Health Status Brief summary of current health status: See discharge summary Provider Discharge Instructions Diet: Diet as Tolerated Liquid consistency: Normal/Thin Food texture: Regular Special Rehabilitation Services Reason for rehabilitation: Other
--- NOTE | 2019-04-25 11:44 | CM.DPNOTE ---
DCP Cont: Worked on this DCP throughout the day yesterday and today. Spoke w/Components Engineer at [facility] on [address] yesterday, P# [phone], she explained that pt would be welcome home as long as [facility] Hospice was open and was assisting w/pt's end of life care needs/med assist. TC placed to [facility] w/[facility] yesterday, she explained an RN could open pt at [facility] at 1300 today, 9... Updated Mohini yesterday re: above. Also updated rainer Coronado yesterday and all were agreeable to following plan: P: DC today back home to [facility] on [address] [facility] via son's pov, w/ [facility] to open service at 1300. No DME needed from Hospice at this time. Faxed DC Summary and signed med list to Mohini at F#[phone] today once completed by Dr Chi. Spoke to Mohini, she remained aware and agreeable to plan; rainer Coronado driving pt home to [facility] w/DC packet. KATHERYN Dash
--- NOTE | 2019-04-25 11:45 | PC.NURSE ---
DISCHARGE: PATIENT 2P ASSISTED TO DRESS, BEAR HUG PIVOT TRANSF TO HER OWN WC. OKAY FOR SON TO DRIVE PATIENT BACK TO [facility] PER VENKATESH STUART. SENT PACKET WITH PATIENT'S SON. ALL BELONGINGS SENT W/ PATIENT. VENKATESH STUART STATES SHE SPOKE WITH NURSING DETAIL MANAGER AT [facility], WE DO NOT NEED TO CALL FOR FURTHER REPORT, JUST ALLOW PATIENT TO RETURN HOME.
== END 2019-04-25 11:51 | disposition hospice, home (50) | DRG 682 ==
LOC: ED 21:14 → AC 22:31
PROVIDERS: Emergency Medicine; Internal Medicine; Admitting Provider Nurse Practitioner Adult Health; Emergency Provider Emergency Medicine; Visit Provider Nurse Practitioner Adult Health
DX: N17.9 Acute kidney failure, unspecified (principal); E43 Unspecified severe protein-calorie malnutrition; E87.1 Hypo-osmolality and hyponatremia; N18.4 Chronic kidney disease, stage 4 (severe); E86.0 Dehydration; I12.9 Hypertensive chronic kidney disease with stage 1 through stage 4 chronic kidney disease, or unspecified chronic kidney disease; Z68.21 Body mass index [BMI] 21.0-21.9, adult; R40.2362 Coma scale, best motor response, obeys commands, at arrival to emergency department; R40.2142 Coma scale, eyes open, spontaneous, at arrival to emergency department; R40.2242 Coma scale, best verbal response, confused conversation, at arrival to emergency department; D63.1 Anemia in chronic kidney disease; F03.90 Unspecified dementia, unspecified severity, without behavioral disturbance, psychotic disturbance, mood disturbance, and anxiety; Z87.891 Personal history of nicotine dependence
CPT/HCPCS: 36415; 51701; 71045; 74176; 80048; 80053; 80069; 81001; 82550; 82962; 83605; 83690; 83735; 84145; 84484; 85025; 85610; 85730; 87040; 87086; 87633; 93005; 96360; 96361; 97162; 99283; 99285; G0378; J0885; J1644; J1756; J2405